=== PATIENT | female | born 1980 | race Caucasian/White ===

== ENCOUNTER → 2021-09-27 | Outpatient (CLI) | payer SELFPAY ==
--- NOTE | 2021-09-27 12:30 | BRBX_PTH ---
PATIENT: ALESSANDRO PALACIOS [id number] AGE/SX: 41/F ROOM: RE09/27/[address]: Dr. Rick Bartholomew MD : 1980 BED: DIS: 09/27/2021 SPEC #: [id number] RECD: 09/27/21 15:47 STATUS: STEPHANIE RERosibel #: [id number] COLE: 09/27/21 12:[address]: Rick Bartholomew DEPT: SURGICAL PATHOLOGY RECD BY: Karis Mcmanus ENTERED: 09/28/21 08:20 SP TYPE: BREAST BX OTHR DR: ERIN Pineda Tissues: Right breast, NOS Procedures: Surgery Specimen Level IV HEADER OPERATION: Right lateral biopsy PRE-OP DIAGNOSIS: Right breast mass/cyst TISSUE SUBMITTED: Right breast tissue MICROSCOPIC DIAGNOSIS Right breast, core biopsy: Fibrocystic changes. Negative for atypia or malignancy. SJ:[place] 09/29/2021 COMMENT Correlation with clinical, radiologic findings and appropriate follow up are necessary. MICROSCOPIC DESCRIPTION Slides are reviewed. GROSS DESCRIPTION Received in fixative is one container labeled with the patient's name and designated right breast. The specimen consists of multiple elongated fragments of peters-yellow fibroadipose tissue that in aggregate measure 1.5 x 0.5 x 0.1 cm. The entire specimen is submitted in one cassette. / SJ:rg 09/28/2021 TC:5 CPT: 03037
== END | disposition home or self-care (01) ==
LOC: LABSPEC 15:55
PROVIDERS: PCP Physician Assistant; Referring Provider Surgery; Visit Provider Surgery
DX: N60.11 Diffuse cystic mastopathy of right breast (principal)
CPT/HCPCS: 88305

== ENCOUNTER → 2022-03-24 | Outpatient (CLI) | payer SELFPAY ==
--- NOTE | 2022-03-24 09:18 | US_ITS ---
STUDY: ULTRASOUND BREAST - RIGHT REASON FOR EXAM: Female, 41 years old. 6 month follow-up. History of right breast cysts. TECHNIQUE: Axial and longitudinal images of the RIGHT breast were performed with a high resolution ultrasound transducer. # OF IMAGES: 26 COMPARISON: None. FINDINGS: The outer quadrant of the right breast was examined with ultrasound. Multiple small cysts are seen. The largest cyst measures 1.2 cm x 1 cm x 0.6 cm. This is at the 9 o''clock position of the breast at 2 cm from the nipple. US/Breast Limited Unilateral IMPRESSION: Multiple cysts are seen in the upper outer quadrant of the right breast. ASSESSMENT CATEGORY: BIRADS Category 2: Benign. A letter regarding these results will be sent to the patient by the facility within 30 days. Electronically Signed: Oswaldo Gregorio MD at 11:01 EST ,
== END | disposition home or self-care (01) ==
PROVIDERS: PCP Physician Assistant; Referring Provider Surgery; Visit Provider Surgery
DX: R92.8 Other abnormal and inconclusive findings on diagnostic imaging of breast (principal); N60.01 Solitary cyst of right breast
CPT/HCPCS: 76642

== ENCOUNTER → 2023-11-20 | Outpatient (CLI) | payer OTHER, SELFPAY ==
--- NOTE | 2023-11-20 | BRBX_PTH ---
PATIENT: ALESSANDR[facility]ACIOS [id number] AGE/SX: 43/F ROOM: RE11/20/[address]: Dr. 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 See synoptic report below. RANGEL/ 11/22/2023 COMMENT INVASIVE BREAST CANCER SUMMARY: Procedure: Needle core biopsy Specimen Laterality: Left breast Tumor site: 3o'clock, 7.0 cm from nipple Histologic type: Invasive ductal carcinoma Provisional Histologic grade: 2 Tubule Differentiation Score: 3 Nuclear Pleomorphism Score: 3 Mitotic Rate Score: 1 Tumor Size ( greatest dimension): 8.0mm Ductal Carcinoma In situ: Present Architectural Pattern: Solid and [place] Nuclear Grade: 2-3 Necrosis: Focally present Cancerization of lobules: Present. Angiolymphatic Invasion: Not identified Microcalcifications: Not present Additional Findings: Minimal chronic inflammation Breast Marker Study: [id number] ER: 85%, strong intensity UT: 85%, moderate to strong intensity Her2:1-2+ (equivocal) Ki67: 15% [id number]: Pending The above summary is in compliance with [employer] of [place] Path[employer] (CAP) Cancer Protocols Checklist and [place] Joint Committee on Cancer (AJCC), Staging Manual, 8th Ed. Immunohistochemistry ([id number]) supports the above diagnosis. Case has been reviewed in consultation with Dr. Boogie who concurs with the above diagnosis. IDC:SJ MICROSCOPIC DESCRIPTION Slides are reviewed. GROSS DESCRIPTION Received in fixative is one container labeled with the patient's name and designated Left breast lesion. The specimen consists of two cores of light peters soft tissue measuring in aggregate 1.5 x 0.5 x 0.1cm. The specimen is submitted in its entirety in one cassette. AM/mr 11/21/2023 TC:0 CPT:74011 ADDENDUM ADDENDUM ADDENDUM ADDENDUM ADDENDUM ADDENDUM ADDENDUM ADDENDUM ADDENDUM ADDENDUM ADDENDUM ADDENDUM 12/04/2023 11:11 ADDENDUM 12/04/2023 11:11 ADDENDUM 12/04/2023 11:11 ADDENDUM 12/04/2023 11:11 ADDENDUM 12/04/2023 11:11 Breast Cancer HER-2/west FISH Analysis ([employer]) Test Description Interpretation Her-2/west Negative/Not Amplified Results: HER2: CEP-17 ratio: 1.0:1 Average HER2 signal: 2.6 Average CEP-17 signal: 2.7 Number of selected invasive cells scanned: 50 Date: 12/04/2023 *See Complete [facility] Report in EMR For Further Details*
--- NOTE | 2023-11-20 | IMM_PTH ---
PATIENT: ALESSANDRO PALACIOS LOC: [facility] U#:[id number] AGE/SX: 43/F ROOM: RE11/20/[address]: Dr. Cora Rios MD : 1980 BED: DIS: 11/20/2023 SPEC #: [id number] RECD: 11/22/23 12:00 STATUS: STEPHANIE REQ #: [id number] COLE: 11/20/23 00:[address]: Cora Rios DEPT: IMMUNOHISTOCHEMISTRY RECD BY: Keo Walters ENTERED: 11/22/23 12:02 SP TYPE: IMMUNO OTHR DR: ERIN Pineda Tissues: Left breast, NOS Procedures: CK5-6 (initial) CALPONIN-1 (add) CD31 (add) CK8 (add) E-CAD (add) HER2 APRIL (add) KI-67 (add) P53 (add) TN (add) FACTOR VIII (add) P40 (add) MOC-31 (add) ER (initial) PHYSICIAN & [address] [address] SPECIMEN INFORMATION: Tissue Source: Left breast lesion Clinical Info: Left breast lesion, 3o'clock, 7.0cm from nipple Specimen Number: [id number] CPT code: 60041,90823s5,97347p2 METHODOLOGY: Deparaffinized sections of prefer/formalin-fixed tissue or PAP/DQ stained slides are incubated with monoclonal/polyclonal antibodies/oligonucleotide probes. Localization is made via biotin free immunoperoxidase method. Appropriate controls are performed and reacted as expected. Results on target cell population are indicated in the following table: RESULTS: ANTIBODY / CLONE RESULT P53 (DO-7) positive, indeterminate pattern Ki-67 (30-9) positive, 15% CK8 (71znydQ35) positive CK5-6 (D5 & 1684) negative Calponin-1 (WV026K) negative P40 (BC28) negative E-Cad (ECH-6) positive MOC-31 (4561) positive, dim CD31 (KATIANA/70A) Factor VIII (R Ag) MORPHOMETRIC ANALYSIS ER (clone 6F11) 85, strong intensity TN (clone 16/1E2) 85%, moderate to strong intensity Her-2Neu (clone CB11) 1-2+ The prognostic test for HER2 is performed on formalin-fixed paraffin embedded tissue. A 3+ (positive) staining pattern is defined as intense, homogeneous, complete, circumferential membranous staining in >10% of contiguous tumor cells. A similar weak (2+) staining pattern is interpreted as equivocal. JAYDE follow-up testing is recommended for all equivocal cases. Positivity/negativity for ER/TN is reported if > or < 1% of the tumor cells are immuno- reactive, respectively. The ASCO/CAP criteria is used for scoring. Reference: Journal of Clinical Oncology, 2013; 31:6268-2542 & 2010; 16:4776-5051. Ischemic time: Less than one hour. Duration of fixation: 32 Hrs; Sample Adequate: Yes. These assays have not been validated on decalcified tissues. Results should be interpreted with caution given the likelihood of false negativity on decalcified specimens or fixation greater than 72 hours. Alternative testing methods (FISH/dualISH for Her2; gene expression for ER) are recommended, if applicable. Please notify the laboratory if additional testing is required. These tests were developed and their performance characteristics determined by [facility]. They may not have been cleared or approved by the U.S. Food and Drug Administration. The FDA has determined that such clearance or approval is not necessary. The above immunohistochemical/dualISH markers are ordered and reviewed by the Pathologist. The test for HER 2 is performed on formalin-fixed paraffin embedded tissue using the CB11 mouse monoclonal antibody (CooCoo). A 3+ staining pattern is interpreted as positive and is defined as a strong membranous staining involving the entire cell membrane in over 30% of invasive tumor cells. A similar weak staining pattern (2+) involving 10% of the tumor cells is interpreted as equivocal. HER 2 follow-up testing by FISH is recommended for all equivocal results. Reference: [place] Society of Clinical Oncology and the College of [place] Path[employer] (J. Clin. Oncol. 23: 118-145, 2007). Fixative Used: Formalin; Duration of Fixation: 32 Hrs; Sample Adequate: Yes INTERPRETATION: Left breast lesion, 3o'clock, 7.0cm from nipple, biopsy: Invasive ductal carcinoma, provisional grade 2/3. Ductal carcinoma insitu. Positive for estrogen receptors (favorable prognostic indicator). Positive for progesterone receptors (favorable prognostic indicator). Equivocal for overexpression of RNQ1omm. Case has been reviewed in consultation with Dr. Boogie who concurs with the above diagnosis. IDC:HOWARD MULTANI/ 11/23/2023 ADDENDUM ADDENDUM ADDENDUM ADDENDUM ADDENDUM ADDENDUM ADDENDUM ADDENDUM ADDENDUM ADDENDUM ADDENDUM ADDENDUM ADDENDUM ADDENDUM ADDENDUM ADDENDUM ADDENDUM ADDENDUM ADDENDUM ADDENDUM ADDENDUM 11/29/2023 13:36 ADDENDUM 11/29/2023 13:36 ADDENDUM 11/29/2023 13:36 ADDENDUM 11/29/2023 13:36 ADDENDUM 11/29/2023 13:36 IN SITU HYBRIDIZATION (JAYDE) FOR HER2 Interpretation: Negative / Not Amplified HER2 : CEP-17 Ratio: 1.85 Average HER2 Signal: 2.15 Average CEP-17 Signal: 1.1 Number of Tumor Cells Scanned: 50 Interpretative Information: The INFORM HER2 Dual JAYDE DNA Probe Cocktail assay is performed on formalin-fixed paraffin embedded tissue and determines HER2 gene status by detecting HER2 copies via silver in situ hybridization (SISH) and Chromosome 17 copies via chromogenic red in situ hybridization on tumor cells. A minimum of 20 cells representing > 10% of contiguous and homogeneous invasive tumor cells were analyzed. HER2 gene status is classified as Non-amplified (HER2/Chr17 ratio < 2.0) or Amplified (HER2/Chr17 ratio greater than or equal to 2.0). If the resulting HER2/Chr17 ratio falls within 1.8 - 2.2 (Borderline), retesting by FISH is recommended. Reference: Jorge AC, Adrianne ANGELH, Angie DG, et al: Recommendations for Human Epidermal Growth Factor Receptor 2 Testing in Breast Cancer: [place] Society of Clinical Oncology / College of [place] Pathologists Clinical Practice Guideline Update. J Clin Oncol 31:2883-0647, 2013.
== END | disposition home or self-care (01) ==
LOC: LABSPEC 15:54
PROVIDERS: PCP Physician Assistant; Referring Provider Surgery; Visit Provider Surgery
DX: C50.412 Malignant neoplasm of upper-outer quadrant of left female breast (principal); Z17.0 Estrogen receptor positive status [ER+]
CPT/HCPCS: 81002; 88305; 88341; 88342

== ENCOUNTER → 2023-11-28 | Outpatient (CLI) | payer OTHER, SELFPAY ==
--- NOTE | 2023-11-28 13:07 | MRI_ITS ---
STUDY: BILATERAL BREAST MR WITHOUT AND WITH CONTRAST REASON FOR EXAM: Female, 43 years old. Left breast cancer. History of right cyst aspiration in 2021. Mother with breast cancer at age 70 and maternal aunt in 70s. Biopsy November 20, 2023. TECHNIQUE: Multi-sequence multi-echo imaging of both breasts was performed with a dedicated breast coil. T1-weighted and T2-weighted images were performed before the administration of contrast. T1-weighted images were also performed after the intravenous administration of 11 mL of Clariscan contrast. COMPARISON: Breast ultrasounds dated September 15, 2021 and March 24, 2022. Screening mammogram dated November 12, 2023 and left breast ultrasound dated November 14, 2023. FINDINGS: RIGHT BREAST: Heterogeneously dense fibroglandular tissue with moderate background enhancement. There are no abnormal enhancing masses or areas of non-mass enhancement in the right breast. LEFT BREAST: Heterogeneously dense fibroglandular tissue with moderate background enhancement. In the far posterior and outer aspect of the left breast near the chest wall, there is an enhancing irregular mass measuring 2.2 cm x 1.8 cm x 9 mm. This mass contacts the pectoralis major muscle and there are enhancing spicules that extend into the pectoralis muscle. This lesion represents the index node in carcinoma. A lobular enhancing mass at the nipple line 5.4 cm from the nipple at approximately the 6:00 position is present. This focal area of enhancement is nonspecific. More inferiorly and medially there are 2 foci of non--mass enhancement, one which is 4.8 cm from the nipple and approximately 1.6 cm below the nipple with the area of enhancement measuring approximately 13 mm x 9 mm and another more inferiorly and slightly more laterally 5 cm from the nipple and approximately 2.8 cm below the nipple. Both of these areas are nonspecific. Second look ultrasound of the inferior and medial aspect of the left breast is recommended for further evaluation of these MRI findings. No enlarged or abnormal lymph nodes. No abnormality in the visualized regions of the chest or liver. MRI/Breast Bilateral W/O and W IMPRESSION: Index lesion of the left breast measuring 2.2 cm x 1.8 cm x 9 mm adjacent to the pectoralis major muscle with an enhancing spicule that extends beyond the surface of the pectoralis muscle. 2 nonspecific enhancing lesions in the lower medial aspect of the left breast as described for which further evaluation with second look ultrasound is recommended. CATEGORY: BIRADS Category 6: Known Biopsy-Proven Malignancy - Appropriate Action Should Be Taken. A letter regarding these results will be sent to the patient by the facility within 30 days. Electronically Signed: Chace Salcedo MD at 13:03 EDT ,
== END | disposition home or self-care (01) ==
PROVIDERS: PCP Physician Assistant; Referring Provider Surgery; Visit Provider Surgery
DX: Z12.31 Encounter for screening mammogram for malignant neoplasm of breast (principal)
CPT/HCPCS: 77049; A9575; A4216; C8908

== ENCOUNTER → 2023-12-06 | Outpatient (CLI) | payer OTHER, SELFPAY ==
--- NOTE | 2023-12-06 10:41 | US_ITS ---
STUDY: ULTRASOUND BREAST - LEFT REASON FOR EXAM: Female, 43 years old. Abnormal MRI of the breast. TECHNIQUE: Axial and longitudinal images of the LEFT breast were performed with a high resolution ultrasound transducer. # OF IMAGES: 33 COMPARISON: Comparison is made with prior MRI of the breasts dated November 28, 2023. FINDINGS: LEFT Breast: The inferior medial aspect of the left breast was examined with ultrasound. There is an 8 mm x 8 mm x 5 mm hypoechoic well-defined nodule at the 9:00 position of the breast at 1 cm from the nipple. A similar-appearing well-defined hypoechoic nodule at the 7:00 position of the breast at 3 cm from nipple was seen as well. These most likely represent fibroadenomas. US/Breast Limited Unilateral IMPRESSION: The findings on the recent MRI correspond to 2, subcentimeter well-defined hypoechoic nodules. These most likely represent fibroadenomas. ASSESSMENT CATEGORY: BIRADS Category 2: Benign. A letter regarding these results will be sent to the patient by the facility within 30 days. Electronically Signed: Oswaldo Gregorio MD at 14:15 EDT ,
== END | disposition home or self-care (01) ==
LOC: OPUS 10:37
PROVIDERS: PCP Physician Assistant; Referring Provider Surgery; Visit Provider Surgery
DX: N63.20 Unspecified lump in the left breast, unspecified quadrant (principal); C50.412 Malignant neoplasm of upper-outer quadrant of left female breast; Z17.0 Estrogen receptor positive status [ER+]
CPT/HCPCS: 76642

== ENCOUNTER → 2023-12-18 | Outpatient (CLI) | payer OTHER, SELFPAY ==
--- NOTE | 2023-12-18 | IMM_PTH ---
PATIENT: ALESSANDRO PALACIOS LOC: [facility] U#:[id number] AGE/SX: 43/F ROOM: RE12/18/[address]: Dr. Cora Rios MD : 1980 BED: DIS: 12/18/2023 SPEC #: [id number] RECD: 12/19/23 12:05 STATUS: STEPHANIE REQ #: [id number] COLE: 12/18/23 00:[address]: Cora Rios DEPT: IMMUNOHISTOCHEMISTRY RECD BY: Keo Walters ENTERED: 12/19/23 12:06 SP TYPE: IMMUNO OTHR DR: No Primary Care Phys Tissues: A - Left breast, NOS Procedures: CALPONIN-1 (add) CK5-6 (add) CK8 (add) E-CAD (add) P53 (add) MI (add) P40 (add) ER (initial) KI-67 (initial) PHYSICIAN & INSTITUTION [address] [address] SPECIMEN INFORMATION: Tissue Source: A- Left breast nodule- 9o'clock, 1.0cm from nipple Clinical Info: Left breast lesion Specimen Number: [id number] CPT code: 01673,06736y0,45743q7 METHODOLOGY: Deparaffinized sections of prefer/formalin-fixed tissue or PAP/DQ stained slides are incubated with monoclonal/polyclonal antibodies/oligonucleotide probes. Localization is made via biotin free immunoperoxidase method. Appropriate controls are performed and reacted as expected. Results on target cell population are indicated in the following table: RESULTS: ANTIBODY / CLONE RESULT Block A P53 (DO-7) positive, wild type, dim Ki-67 (30-9) positive, 5% CK8 ([id number]) positive CK5-6 (D5 & 1684) positive, basal cells Calponin-1 (RB930O) positive P40 (BC28) positive, basal cells E-Cad (ECH-6) positive MORPHOMETRIC ANALYSIS ER (clone 6F11) >95%, strong MI (clone 16/1E2) >95, stromg Reference: Journal of Clinical Oncology, 2013; 31:5755-2980 & 2010; 16:2976-6584. Ischemic time: Less than one hour. Duration of fixation: 12 Hrs; Sample Adequate: Yes. These assays have not been validated on decalcified tissues. Results should be interpreted with caution given the likelihood of false negativity on decalcified specimens or fixation greater than 72 hours. Alternative testing methods (FISH/dualISH for Her2; gene expression for ER) are recommended, if applicable. Please notify the laboratory if additional testing is required. These tests were developed and their performance characteristics determined by [facility]. They may not have been cleared or approved by the U.S. Food and Drug Administration. The FDA has determined that such clearance or approval is not necessary. The above immunohistochemical/dualISH markers are ordered and reviewed by the Pathologist. INTERPRETATION: A. Left breast lesion, core biopsy: Atypical ductal hyperplasia. Positive for estrogen receptors (favorable prognostic indicator). Positive for progesterone receptors (favorable prognostic indicator). RANGEL/ 12/20/2023
--- NOTE | 2023-12-18 08:00 | BRBX_PTH ---
PATIENT: ALESSANDRO PALACIOS [facility] U[facility][id number] AGE/SX: 43/F ROOM: RE12/18/[address]: Dr. Cora Rios MD : 1980 BED: DIS: 12/18/2023 SPEC #: [id number] RECD: 12/18/23 08:56 STATUS: STEPHANIE RERosibel #: [id number] COLE: 12/18/23 08:[address]: Cora Rios DEPT: SURGICAL PATHOLOGY RECD BY: Karis Mcmanus ENTERED: 12/18/23 10:38 SP TYPE: BREAST BX OTHR DR: No Primary Care Phys Tissues: A - Left breast, NOS B - Left breast, NOS Procedures: Surgery Specimen Level IV HEADER OPERATION: Biopsy of left breast lesion x2 PRE-OP DIAGNOSIS: Left breast lesion TISSUE SUBMITTED: A- Left breast nodule- 9o'clock, 1cm from nipple, B- Left breast nodule- 7o'clock, 3cm from nipple Ischemic Time: 1 minute Fixation Time: 12 hours MICROSCOPIC DIAGNOSIS A. Left breast lesion, 9o'clock, core biopsy: Focal atypical ductal hyperplasia. Hyalinized stroma. See comment. B. Left breast lesion, 7o'clock, core biopsy: Non proliferative fibrocystic change. AM/mr 12/19/2023 COMMENT A. Immunohistochemistry ([id number]) supports the above diagnosis. Case has been reviewed in consultation with Dr. Mendoza who concurs with the above diagnosis. IDC:SJ MICROSCOPIC DESCRIPTION Slides are reviewed. GROSS DESCRIPTION A. Received in fixative is one container labeled with the patient's name and designated Left breast nodule 9o'clock. The specimen consists of multiple elongated fragments of peters-yellow fibroadipose tissue that in aggregate measure 1.5 x 0.5 x 0.1 cm. The specimen is totally submitted in one cassette. B. Received in fixative is one container labeled with the patient's name and designated Left breast 7o'clock. The specimen consists of multiple elongated fragments of peters-yellow fibroadipose tissue mixed with blood clot that in aggregate measure 2.5 x 1.0 x 0.1 cm. The specimen is totally submitted in one cassette. SJ.mr 12/18/2023 TC:0 CPT:38881o9
== END | disposition home or self-care (01) ==
LOC: LABSPEC 09:02
PROVIDERS: Referring Provider Surgery; Visit Provider Surgery
DX: N63.20 Unspecified lump in the left breast, unspecified quadrant (principal)
CPT/HCPCS: 88305; 88341; 88342

== ENCOUNTER → 2024-01-09 | Outpatient (CLI) | payer OTHER, SELFPAY ==
--- NOTE | 2024-01-09 13:42 | ECHODONC_ITS ---
Reason For Study: Pre Chemo/ Left Breast Cancer Procedure This was a 2D Doppler, Color Flow transthoracic echocardiogram. Myocardial strain analysis was performed in this exam to aid in the assessment of cardiac function. Exam performed in department. Left Ventricle Normal LV size. Left ventricular systolic function is normal. The left ventricular ejection fraction is 65 %. No regional wall motion abnormalities noted. Right Ventricle Normal RV size. Normal systolic function. Atria Normal left atrium. Normal right atrium. Mitral Valve Normal mitral valve. Tricuspid Valve Normal tricuspid valve. Aortic Valve Trisinus/trileaflet aortic valve. Pulmonic Valve Normal pulmonic valve. Great Vessels Normal aortic root. The pulmonary artery is normal size. Normal inferior vena cava. Pericardium/Pleural No pericardial effusion. MMode/2D Measurements & Calculations LVIDd: 3.7 cm IVSd: 0.67 cm LA dimension: 2.9 cm LVIDs: 2.8 cm LVPWd: 0.77 cm RVDd: 2.5 cm FS: 24.6 % LAV(MOD-bp): 22.8 ml LVAd ap4: 23.8 cm2 SV(MOD-sp4): 42.0 ml LAV(MOD-bp) Indexed: 14.4 ml/m2 LVLd ap4: 7.5 cm LAV(MOD-sp2): 28.0 ml EDV(MOD-sp4): 63.1 ml LAV(MOD-sp4): 18.1 ml EDV(sp4-el): 64.4 ml LVAs ap4: 12.4 cm2 LVLs ap4: 5.9 cm ESV(MOD-sp4): 21.1 ml ESV(sp4-el): 22.0 ml EF(MOD-sp4): 66.5 % EF(sp4-el): 65.9 % SV(sp4-el): 42.4 ml LA A4 area: 10.4 cm2 RA A4 area: 9.3 cm2 TAPSE: 1.7 cm Time Measurements MV dec time: 0.17 sec Doppler Measurements & Calculations MV E max andrew: 97.9 cm/sec Lat Peak E' Andrew: 19.7 cm/sec Med Peak E' Andrew: 14.9 cm/sec MV A max andrew: 50.4 cm/sec E/E' lat: 5.0 E/E' med: 6.6 MV E/A: 1.9 MV V2 max: 109.7 cm/sec MV P1/2t max andrew: 110.7 cm/sec Ao V2 max: 124.6 cm/sec MV max P.8 mmHg MV P1/2t: 62.9 msec Ao max P.2 mmHg MV V2 mean: 54.8 cm/sec MV dec slope: 515.5 cm/sec2 Ao V2 mean: 86.6 cm/sec MV mean P.5 mmHg Ao mean P.4 mmHg MV V2 VTI: 29.2 cm MVA(P1/2t): 3.5 cm2 Ao V2 VTI: 25.4 cm AV (velocity ratio): 0.88 LV V1 max: 105.5 cm/sec MR max andrew: 430.5 cm/sec PA V2 max: 79.0 cm/sec LV V1 max P.5 mmHg MR max P.1 mmHg PA max PG (full): 0.91 mmHg LV V1 mean P.6 mmHg LV V1 mean: 75.3 cm/sec LV V1 VTI: 22.4 cm ECHO/ONC Echo Complete Interpretation Summary Normal LV size. Left ventricular systolic function is normal. The left ventricular ejection fraction is 65 %. The global longitudinal strain is normal. The global longitudinal strain = -20 % (normal). Ordering Physician: Andrew Horvath Referring Physician: Andrew Horvath Performed By: Stephon Rebollar and Student
== END | disposition home or self-care (01) ==
PROVIDERS: PCP Physician Assistant; Referring Provider Internal Medicine Medical Oncology; Visit Provider Internal Medicine Medical Oncology
DX: Z01.818 Encounter for other preprocedural examination (principal); C50.412 Malignant neoplasm of upper-outer quadrant of left female breast
CPT/HCPCS: 93306; 93356

== ENCOUNTER → 2024-01-10 | Outpatient (CLI) | payer OTHER, SELFPAY ==
--- NOTE | 2024-01-10 10:41 | BD_ITS ---
STUDY: DUAL ENERGY X-RAY ABSORPTIOMETRY / DXA REASON FOR EXAM: Female, 43 years old. BREAST CA/SCREENING TECHNIQUE: Bone Mineral Density (BMD) measurements of lumbar spine and bilateral hips were obtained. COMPARISON: None. FINDINGS: Lumbar Spine (L1-L4): g/cm2 (0.843) / T-score (-1.9) / Z-score (-1.5) Findings are suggestive of osteopenia with a moderate fracture risk. Left Femur Total: g/cm2 (0.588) / T-score (-2.9) / Z-score (-2.6) Left Femoral Neck: g/cm2 (0.587) / T-score (-2.4) / Z-score (-2.0) Right Femur Total: g/cm2 (0.611) / T-score (-2.7) / Z-score (-2.5) Right Femoral Neck: g/cm2 (0.605) / T-score (-2.2) / Z-score (-1.8) BD/Dexa Bone Density Study IMPRESSION: The patient is considered osteoporotic as outlined below according to World [place] Organization (WHO) criteria with a high fracture risk. Reference Information: The T-score is the number of standard deviations above or below the standard which is normal for young adults at their peak bone mineral density. The World Health Organization (WHO) interprets the T-scores as follows: Above -1 Normal bone density Between -1 and -2.5 Osteopenia Equal to / or below -2.5 Osteoporosis As a practical clinical guideline, osteopenia may be graded as follows: Mild -1 through -1.5 Moderate -1.6 through -2.0 Severe -2.1 through -2.4 The Z-score is the number of standard deviations above or below age-matched controls. A Z-score of less than -1.5 would be considered abnormal. References: 1. NIH Osteoporosis and Related Bone Diseases www osteo.org 2. International Society for Clinical Densitometry www iscd.org 3. National Osteoporosis Foundation www nof.org Electronically Signed: Oswaldo Gregorio MD at 11:50 EDT ,
== END | disposition home or self-care (01) ==
LOC: OPBD 10:39
PROVIDERS: PCP Physician Assistant; Referring Provider Internal Medicine Medical Oncology; Visit Provider Internal Medicine Medical Oncology
DX: Z13.820 Encounter for screening for osteoporosis (principal); C50.412 Malignant neoplasm of upper-outer quadrant of left female breast; Z17.0 Estrogen receptor positive status [ER+]
CPT/HCPCS: 77080

== ENCOUNTER → 2024-01-21 | Outpatient (CLI) | payer OTHER, SELFPAY ==
[2024-01-29 10:10] LABS: HPV APTIMA, High Risk Negative (Negative)
== END | disposition home or self-care (01) ==
LOC: LABSPEC 12:13
PROVIDERS: PCP Physician Assistant; Referring Provider Obstetrics & Gynecology; Visit Provider Obstetrics & Gynecology
DX: Z12.4 Encounter for screening for malignant neoplasm of cervix (principal)
CPT/HCPCS: 87624; 88175; G0145

== ENCOUNTER 2024-01-24 15:57 | Observation (INO) | payer OTHER, SELFPAY ==
[2024-01-24] VITALS (9 sets, daily range): BP systolic 93–105; BP diastolic 58–77; PULSE 74–118; RESP 12–20; TEMP 36.1–36.6; O2SAT 94–100; BMI 18.5
--- NOTE | 2024-01-24 07:52 | NM_ITS ---
PROCEDURE: NUCLEAR MEDICINE Injection [place] Node - LEFT breast(s). REASON FOR EXAM: Female, 43 years old. Left breast cancer. TECHNIQUE: [place] node localization using radionuclide methods of the LEFT breast(s) was performed following intravenous administration of 1.2 mCi of of sulfur colloid Tc-99m. COMPARISON STUDIES : NM - None. CR - Not available for review at this time. CT - Not available for review at this time. MR - Not available for review at this time. US - Not available for review at this time. FINDINGS: 1.2 mCi of technetium labeled sulfur colloid was injected subcutaneously in 4 equal aliquots in the periareolar region of the left breast. NM/Lymph Node Injection Only IMPRESSION: 1.2 mCi of technetium sulfur colloid was injected subcutaneously in 4 equal aliquots in the periareolar region of the left breast for sentinel node imaging.. Electronically Signed: Oswaldo Gregorio MD at 11:09 EDT ,
[2024-01-24 08:15] LABS: Internal QC Validated? YES +Cl - CLEAR BKGD; Pregnancy, Urine Negative Negative; Record Kit Lot#,Urine Preg HCG0000772476
[2024-01-24] MEDS: Lactated Ringers 1,000 ML 15 ML IV (08:36)
--- NOTE | 2024-01-24 08:45 | PCM.PRE.AN2 ---
ASA Classification* ASA Classification ASA Classification: 2 Assessment & Plan Anesthesia* Anesthesia Assessment Anesthesia Assessment: Discussed sedation and/or anesthesia options, risks, benefits, and alternatives with patient/parents/legal guardian/POA. Questions invited. The patient/parents/legal guardian/POA seems to understand and agrees to proceed with anesthesia plan. Reviewed the physical assessment, medical history, allergy history and patient home medications list prior to surgery/procedure/anesthetic and documented any changes. Performed airway and anesthesia risk assessments. 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 When Was Last Pacemaker Check QUESTION #4 FULL TEXT: You/Your Family Experience fever (hyperthermia) with Anesthesia Last Oral Intake Last Oral intake: Last Oral Intake NPO since 04:00 01/24/24 08:15 Meds taken in AM with sips of No 01/24/24 08:15 water? Meds patient instructed to take am of surgery PONV PONV - loading machine operator helper: PONV - loading machine operator helper Female Yes 01/16/24 08:32 HX of Motion Sickness No 01/16/24 08:32 HX of N/V After Surgery No 01/16/24 08:32 Non-Smoker Yes 01/16/24 08:32 Duration of Surgery greater Yes 01/16/24 08:32 than 60 minutes Number of Risk Factors 3 01/16/24 08:32 PONV Score Moderate Risk 01/16/24 08:32 Height & Weight Height & Weight: Anesthesia: Height & Weight Height 5 ft 6 in 01/24/24 08:15 Weight: 52 kg 01/24/24 08:15 Body Mass Index (BMI) 18.5 01/24/24 08:15 Respiratory Assessment Respiratory Assessment - loading machine operator helper: Respiratory Tract Infection Hx - loading machine operator helper Hx Respiratory Tract Infection No 01/16/24 08:32 STOP Sleep Apnea STOP Sleep Apnea - loading machine operator helper: STOP Sleep Apnea - loading machine operator helper Hx Hypertension No 01/16/24 08:32 Hx Sleep Apnea No 01/16/24 08:32 CPAP BIPAP Do you snore loudly (louder No 01/16/24 08:32 than talking or can be heard Do you often feel tired/ No 01/16/24 08:32 fatigued/ sleepy during daytime? Has anyone observed you stop No 01/16/24 08:32 breathing during sleep? STOP Results Negative 01/16/24 08:32 QUESTION #5 FULL TEXT : Do you snore loudly (louder than talking or can be heard through closed doors)? 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 Specify any problems Hx of Preganancy in last 3 N/A 01/16/24 08:32 Months Nurse Filling Out Transfusion NBUCHER 01/16/24 08:32 & Questions: Date: 01/16/24 01/16/24 08:32 Time: 08:32 01/16/24 08:32 Patient unable to answer at this time (ie. confused, unrespo /Reproduction History /Reproductive History - loading machine operator helper: /Reproductive Hx- loading machine operator helper Hx Now No 01/16/24 08:32 Gestational Age (in weeks): EDC: Hx Hx Para Hx Section SAB No 01/21/24 10:04 Active Medications Active Medications: Current Medications Generic Name Dose Route Start Last Admin Trade Name Freq PRN Reason Stop Dose Admin Cefazolin Sodium 2 gm/ Sodium 110 mls @ 150 mls/hr 01/24/24 11:30 Chloride IV 01/24/24 12:13 PREOP ONE Lactated Ringer's 1,000 mls @ 15 mls/hr 01/24/24 08:45 01/24/24 08:36 IV 15 mls/hr .Q48H FANG Administration PFSH Medical History Osteoporosis Wears contact lenses Wears glasses Cancer Anemia Non-smoker History of echocardiogram History of anemia Breast cancer Home Medications ?Medication ?Instructions ?Recorded ?Last Taken ?Type NK 11/27/23 Unknown History Allergy/AdvReac Type Severity Reaction Status Date / Time adhesive tape Allergy Mild Rash Verified 01/24/24 08:13 Family History Mother Breast cancer mastectomy 2015 Diabetes Hypertension CAD (coronary artery disease) Father Cancer Diabetes Hypertension Aunt Breast cancer Surgical History History of breast biopsy (~12/2023) S/P tonsillectomy S/P section Social History adopted: No household members: spouse and children housing: house number of children: 4 current occupational status: employed current occupation: [employer] current occupational exposures/hazards: No pets and animals: Yes (2 dogs) leisure activities: sports, music, games and reading history of recent travel: Yes (Family vacation in [facility]) sexually active: No Smoking Status: Never smoker second hand exposure: No alcohol intake: never substance use type: does not use well-balanced diet: daily or most days caffeine: Yes (1 to 2 cups of black coffee a day) Type: coffee eating out: 1-3 times/week during the past year weight has: remained stable what type of physical activity do you participate in: walking, bicycling, swimming and yoga frequency: 1-2 times per week duration: 30-45 minutes/day tanner/cheondoism: Zoroastrian seatbelt use: always do you feel safe at home: Yes additional social history: - Abhishek Review of Systems (Anesthesia) ROS Narrative System reviewed and no additional complaints, except as documented.
--- NOTE | 2024-01-24 09:09 | PCM.HP.STD ---
HPI - General General Date of Service: 01/24/24 HPI Narrative ALESSANDRO PALACIOS, is a 43 F who presents for left mastectomy and sentinel lymph node biopsy, nuclear tracer, blue dye possible axillary lymph node dissection and prophylactic right mastectomy. Patient denies any other changes since previous office visit. Patient's to biopsies on the left did not show distinct fibroadenomas and 1 would require excisional biopsy of that area as well thus patient decided to just get a mastectomy. 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 Patient is interested in having a lumpectomy since her genetics were negative. Patient is aware that we do need to biopsy these 2 breast masses to prove they are fibroadenomas. Also question whether patient's original breast mass, which is proven breast cancer, is invading into the pec muscle or just adjacent. [facility] Medical History Osteoporosis Wears contact lenses Wears glasses Cancer Anemia Non-smoker History of echocardiogram History of anemia Breast cancer Home Medications ?Medication ?Instructions ?Recorded ?Last Taken ?Type NK 11/27/23 Unknown History Allergy/AdvReac Type Severity Reaction Status Date / Time adhesive tape Allergy Mild Rash Verified 01/24/24 08:13 Family History Mother Breast cancer mastectomy 2016 Diabetes Hypertension CAD (coronary artery disease) Father Cancer Diabetes Hypertension Aunt Breast cancer Surgical History History of breast biopsy (~12/2023) S/P tonsillectomy S/P section Social History adopted: No household members: spouse and children housing: house number of children: 4 current occupational status: employed 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 current occupational exposures/hazards: No pets and animals: Yes (2 dogs) leisure activities: sports, music, games and reading history of recent travel: Yes (Family vacation in October- [facility]) sexually active: No Smoking Status: Never smoker second hand exposure: No alcohol intake: never substance use type: does not use well-balanced diet: daily or most days caffeine: Yes (1 to 2 cups of black coffee a day) Type: coffee eating out: 1-3 times/week during the past year weight has: remained stable what type of physical activity do you participate in: walking, bicycling, swimming and yoga frequency: 1-2 times per week duration: 30-45 minutes/day tanner/episcopalian: Voodoo seatbelt use: always do you feel safe at home: Yes additional social history: - Abhishek Vital Signs Vital Signs Vital Signs: 01/24/24 08:15 01/24/24 08:15 01/24/24 08:45 Temperature 98 F 98 F Temperature Source Temporal Pulse Rate 74 74 Respiratory Rate 16 16 Respiratory Pattern Normal Blood Pressure 93/64 93/64 Blood Pressure Mean 73 Blood Pressure Source Monitor Blood Pressure Position Sitting Blood Pressure Location Left Arm Pulse Ox 100 100 Oxygen Delivery Method Room Air Weight Weight: 114 lb 10.246 oz Body Mass Index (BMI) 18.5 Physical Exam Const oriented x3 and no apparent distress Resp normal respiratory effort Cardio regular rate GI soft to palpation Extremity normal to inspection Results Lab / Micro Data Labs: Laboratory Results - last 24 hr 01/24/24 08:00: Urine Test Negative Assessment & Plan Assessment/Plan (1) Breast cancer: QUALIFIERS: Breast location: upper outer quadrant of breast Estrogen receptor status: positive Laterality: left Patient sex: female Qualified Code(s): C50.412 - Malignant neoplasm of upper-outer quadrant of left female breast; Z17.0 - Estrogen receptor positive status [ER+] PLAN: Plan I have given the patient options for initial surgical treatment. Options are the following: lumpectomy followed by radiation therapy vs. mastectomy vs. mastectomy followed by immediate reconstruction. I have described the procedures to the patient. I have described the advantages and disadvantages of the options, but I have told the patient that among the options, the survival rate for breast cancer is the same. I have told the patient that with all the surgeries that a sentinel lymph node biopsy is required. I have described the procedure of sentinel lymph node biopsy to the patient. I have told the patient that if the biopsy is positive for metastatic disease, then a full axillary lymph node dissection is required. I have told the patient that adjuvant chemotherapy will be required should the lymph nodes reveal metastatic disease. Also, a full lymph node dissection will increase the risk for lymphedema, especially if there are 4 or more lymph nodes positive for metastatic disease and radiation to the axilla is also required. I have told the patient the risks of surgery, including but not limited to: infection, bleeding, scar tissue, seroma and persistent seroma, lymph leak, injury to any blood vessels, injury to any nerves (particularly the long thoracic, the thoracodorsal, and the second intercostal brachial and the resultant sequelae), lymphedema, cosmetic deformity, dysesthesias, wound infections, further surgery (especially if margins are not clear), complications of anesthesia, etc. the patient understands. Patient has seen plastics and reviewed options prefer no reconstruction with only flat closure for a left mastectomy with sentinel lymph node biopsy and nuclear tracer and blue dye. And prophylactic right mastectomy. Cora Rios M.D. Pager: [phone] [facility] [address] [place] [address], [address] [place] [address] Office: [phone]
[2024-01-24] MEDS: Cefazolin 2 GM in 0.9% Normal Saline (100mL Bag) 100 ML IV (13:58)
[2024-01-24] MEDS: Methylene Blue 1% 100 MG/10 ML VIAL (14:41)
[2024-01-24] MEDS: 0.9% Normal Saline (Pres. free 10 ML Vial (14:41)
--- NOTE | 2024-01-24 14:45 | LYM_PTH ---
PATIENT: ALESSANDRO PALACIOS LOC: [facility] U#:[id number] AGE/SX: 43/F ROOM: IN322 RE01/24/[address]: Dr. Cora Rios MD : 1980 BED: 1 DIS: 01/26/2024 SPEC #: [id number] RECD: 01/24/24 15:15 STATUS: STEPHANIE SUNG #: [id number] COLE: 01/24/24 14:[address]: Cora Rios DEPT: SURGICAL PATHOLOGY RECD BY: Keo Walters ENTERED: 01/24/24 15:15 SP TYPE: LYM NODES OTHR DR: ERIN Pineda Tissues: A - Lymph node, NOS B - Right breast, NOS C - Left breast, NOS D - Left breast, NOS E - Left breast, NOS F - Left breast, NOS G - Left breast, NOS Procedures: Frozen Section (charge) Surgery Specimen Level IV Surgery Specimen Level V Surgery Specimen Level HEADER OPERATION: Left mastectomy sentinel lymph node biopsy, blue dye radiotracer PRE-OP DIAGNOSIS: Breast cancer TISSUE SUBMITTED: A- Left sentinel lymph node, B- Right breast tissue *short stitch- superior, long stitch- lateral*, C- Left breast tissue *long stitch-lateral, short stitch- superior*, D- New lateral inferior margin left *short stitch- superior, long stitch- lateral*, E- New superior medial skin margin left, *long stitch- medial, short stitch- superior*, F- New inferior medial margin left *short stitch- superior, long stitch- lateral, G- New medial superior margin left, short stitch- superior, long stitch- lateral* FROZEN SECTION DIAGNOSIS A. Left sentinel lymph node, biopsy: One lymph node, negative for metastatic carcinoma. 01/24/2024 MICROSCOPIC DIAGNOSIS A. Left sentinel lymph node, biopsy: One lymph node positive for micrometastatic carcinoma. See comment. B. Right breast, mastectomy: Focal fibrocystic changes and intraductal hyperplasia without atypia. Focal microcalcifications. Negative for malignancy. C. 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 One lymph node, negative for metastatic carcinoma. See cancer summary in the comment section. D. New lateral inferior margin, excision: Negative for carcinoma. E. New superior medial skin margin, excision: Negative for carcinoma. F. New inferior medial margin, excision: Negative for carcinoma. G. New medial superior margin, excision: Focal ductal carcinoma in situ. See comment. 01/30/2024 COMMENT A. The lymph node is positive for micrometastatic carcinoma measuring 0.9 mm in greatest dimension. Extranodal extension s not seen. Immunohistochemistry ([id number]) supports the above diagnosis. C. Focal ductal carcinoma in situ is noted away from invasive carcinoma (block 12). One lymph node is negative for metastatic carcinoma (block 6). Immunohistochemistry ([id number]) supports the above diagnosis. G. Ductal carcinoma in situ measures 0.1 in greatest dimension and 0.2cm away from the lateral margin of the specimen BREAST CANCER SUMMARY Procedure - Left mastectomy Tumor site - Upper outer quadrant 3o'clock, 7cm from nipple, as per clinical information. Tumor size - 1.8 x 1.5 x 1.5cm Histologic type - Invasion ductal carcinoma, not otherwise specified Histologic grade (Myra grade): Glandular/tubular differentiation score - 3 Nuclear pleomorphism score - 3 Mitotic count score - 1 Overall grade - grade 2 (score of 7) Tumor focality - Single focus of invasive carcinoma Ductal carcinoma in situ - Present Size (extent) of DCIS - DCIS comprises about 25% of the tumor involved. It is present adjacent to and away from the invasive carcinoma Extensive intraductal component: Present Number of blocks with DCIS - 6 Number of blocks examined - 30 (including specimens C, D, E, F, & G) Architectural pattern - Solid, cribriform Nuclear grade - grade 1,2,3 (low, intermediate and high) Necrosis - present, central (expansive comedo necrosis) Lobular carcinoma in situ - Not identified Tumor extension: Skin - Skin is present and free of tumor Nipple - Ductal carcinoma in situ- does not involve nipple epidermis Skeletal muscle - Present and free of tumor Margins: Margins are free of invasive carcinoma. The tumor is present at the inferior margin of the mastectomy specimen. However, new margins submitted separately specimens D & F are negative for carcinoma Ductal carcinoma in situ margin - 0.3cm away from the posterior margin in specimen C and 0.2cm away from the new lateral margin in specimen G (new medial superior margin) Regional lymph nodes: Number of lymph nodes (sentinel and nonsentinel lymph node) examined - 2 Number of sentinel lymph examined- 1 Number of lymph nodes with micrometastasis - 1 (focus of micrometastasis measures 0.9 mm in greatest dimension, measured microscopically) Extranodal extension - not seen. Number of lymph nodes with macrometastases, or isolated tumor cells - 0 Distal metastases- Not applicable Treatment effect - no known presurgical therapy. Lymphvascular invasion - Not identified Dermal lymphvascular invasion - Not identified Additional Pathologic Findings - Fibrocystic changes. Multifocal intraductal hyperplasia with atypia. Ancillary Studies: Previously performed on the tumor ([id number] / [id number]) ER: positive, (85%), strong intensity LA: positive, (85%) moderate to strong intensity Doq4zci: Equivocal (1-2+) [id number] by dual JAYDE: Negative / Not amplified Microcalcifications - Present in invasive carcinoma Please make reference to previous specimen [id number] left breast, 3o'clock, core biopsy with diagnosis of invasive ductal carcinoma and ductal carcinoma in situ and [id number] breast lesion at 9o'clock, core biopsy with diagnosis of focal atypical ductal hyperplasia and left lesion at 7o'clock, core biopsy with diagnosis of non-proliferative fibrocystic change. PATHOLOGIC STAGE: pT1c pN1mi pMx The above summary is in compliance with [employer] [place] [employer] (CAP) Cancer Protocols Checklist and [place] [employer] Committee on Cancer (AJCC), Staging Manual, 8th Ed. . MICROSCOPIC DESCRIPTION Slides are reviewed. GROSS DESCRIPTION A. Received fresh for frozen section diagnosis labeled with the patient's name is a specimen designated Left sentinel lymph node. The specimen consists of a piece of adipose tissue containing one nodule measuring 1.5 x 1.5 x 0.5cm. The specimen is bisected and submitted for frozen section diagnosis in one cassette. [facility] 01/24[facility] Sections are submitted after additional fixation. [facility] 01/28/2024 B. Received in fixative is one container labeled with the patient's name and designated Right breast. The specimen consists of a mastectomy specimen consistent with breast tissue with overlying skin ellipse. Breast tissue measures 16.0 x 14.0 x 5.0cm. Skin ellipse measures 16.0 x 5.0cm and nipple measures 1.5cm in greatest dimension. Skin areola show a few peters raised lesions measuring 0.2 to 0.3cm in greatest dimension. The specimen is inked as follows: posterior - black, superior - blue, inferior - green, medial - red and lateral - orange. Sections reveal yellow adipose cut surfaces mixed with peters-white fibrous areas. No obvious mass lesion is identified. More dictation will follow after fixation. [facility] 01/25/2024 Solar Sales Assessor sections are submitted in twelve cassettes as follows: 1&2- nipple, entirely submitted, 3-4- raised peters lesion in the areola, entirely submitted, 5- fibrous area underneath the nipple and areola, 6&7- medial portion of breast tissue, 8-10- central portion of breast tissue, 11&12- lateral portion of breast tissue. [facility] 01/28/2024 Sections are submitted after additional fixation. [facility] 01/28/2024 C. Received in fixative is one container labeled with the patient's name and designated Left breast tissue. The specimen consists of mastectomy specimen consistent with breast tissue with overlying skin ellipse. Breast tissue measures 18.0 x 13.0 x 5.0cm. Skin ellipse measures 16.0 x 5.5cm and nipple measures 1.8cm in greatest dimension. Two smaller nodules are noted in the areola measuring 0.3 and 0.5cm in greatest dimensions. The specimen is inked as follows: posterior - black, superior - blue, inferior - green, medial - red and lateral - orange. Surface of skin shows blue dye discoloration. More dictation will follow after fixation. [facility] 01/25/2024 Sections reveal a peters indurated mass in the lower outer quadrant measuring 1.8 x 1.5 x 1.5cm. This mass is 0.2 cm away from the closest inferior and posterior margins. Sections of the rest of the breast tissue reveal yellow adipose cut surfaces mixed with peters-white fibrous areas. Solar Sales Assessor sections are submitted in twelve cassettes as follows: 1&2- nipple, entirely submitted, 3- raised lesions in the areola (entirely submitted), 4- perpendicular medial, lateral, superior margin and skin, 5-8- tumor, entirely submitted with closest inferior and posterior margins, 9-12- sales representative health insurance sections from other areas. Sections are submitted after additional fixation.[facility] 01/28/2024 D. Received in fixative is one container labeled with the patient's name and designated New inferior margin- left. The specimen consists of a piece of fibroadipose tissue measuring 3.5 x 1.5 x 1.0cm. This specimen is oriented as follows: short superior, long lateral. This specimen is inked as follows: lateral marign- orange, medial margin- red, superior margin- blue, inferior margin- green. The specimen is serially sectioned and do not reveal any mass lesions. Entire specimen is submitted from lateral to medial margins in three cassettes. Sections are submitted after additional fixation./ 01/28/2024 E. Received in fixative is one container labeled with the patient's name and designated New superior medial skin- left. The specimen consists of a piece of skin with underlying tissue measuring 12.0 x 1.5cm and underlying breast tissue measuring 15.0 x 5.0 x 2.0cm. No skin lesion is identified. Specimen is inked as follows: superior margin- blue, inferior margin- green, medial margin- red, lateral margin- orange. Sections do not reveal any mass lesions. Solar Sales Assessor sections are submitted in three cassettes as follows: 1- medial and lateral margins, 2- more section. Sections are submitted after additional fixation.. 01/28/2024 F. Received in fixative is one container labeled with the patient's name and designated New inferior medial margin- left. The specimen consists of a piece of fibroadipose tissue measuring 5.0 x 4.0 x 2.0cm. The specimen is inked as follows: anterior - yellow, posterior - black, superior - blue, inferior - green, medial - red and lateral - orange. Sections do not reveal any mass lesions and reveal yellow adipose cut surfaces. Solar Sales Assessor sections are submitted in six cassettes. Cassette 1 contains the perpendicular medial, lateral, superior and inferior margins. Sections are submitted after additional fixation. 01/28/2024 G. Received in fixative is one container labeled with the patient's name and designated New medial superior margin- left. The specimen consists of a piece of fibroadipose tissue measuring 5.5 x 3.5 x 1.5cm. New superior margin is inked blue and old superior margin is inked black. Lateral margin is inked orange and medial margin is inked red. Sections do not reveal any mass lesions. Solar Sales Assessor sections are submitted in six cassettes. Cassette 1 contains the medial and lateral margins. Sections are submitted after additional fixation. 01/28/2024 TC:0 CPT:[id number] ADDENDUM ADDENDUM ADDENDUM ADDENDUM ADDENDUM ADDENDUM ADDENDUM ADDENDUM ADDENDUM ADDENDUM ADDENDUM ADDENDUM 02/26/2024 16:16 ADDENDUM 02/26/2024 16:16 ADDENDUM 02/26/2024 16:16 ADDENDUM 02/26/2024 16:16 ADDENDUM 02/26/2024 16:16 ONCOTYPE DX BREAST RECURRENCE SCORE REPORT PREMENOPAUSAL RECURRENCE SCORE RESULT : 21 DISTANT RECURRENCE RISK AT 5 YEARS: 9% GROUP AVERAGE ABSOLUTE CHEMOTHERAPY BENEFIT: 2.7%
--- NOTE | 2024-01-24 15:45 | OP.PCM_ITS ---
Problems Associated Problem List Diagnoses (1) Mass of breast, left: Report of Operation Date of Procedure: 01/24/24 Pre-Operative Diagnosis: Left breast cancer, prophylactic right mastectomy Post-Operative Diagnosis: Same Surgery/Procedure Performed:: Left mastectomy and sentinel lymph node biopsy, nuclear tracer, methylene blue Description of Surgical Findings:: 1 out of 1 node negative, prophylactic right mastectomy done by Dr. Monroe please see his operative report. Surgeon: Cora Rios hog sticker: Denisa Blanton Type of Anesthesia: General/Supplemental Anesthesiologist: Madhu Marshall Special Medications: Ancef 2 g IV x 1 Specimen's removed: 1. Right sentinel lymph node, 2. Right mastectomy, 3. New lateral inferior margin adjacent to tumor, 4. New medial superior skin margin, 5. New superior medial margin, 5. New inferior medial margin Drains: JPs x 2 Estimated Blood Loss (mL): 15 cc Description of Procedure: Synoptic Portion: Element Response Options Operation performed with curative intent. Yes Tracer(s) used to identify sentinel nodes in the upfront surgery (non- neoadjuvant) setting (select all that apply). Dye; Radioactive tracer Tracer(s) used to identify sentinel nodes in the neoadjuvant setting (select all that apply).Dye; Radioactive tracer All nodes (colored or non-colored) present at the end of a dye-filled lymphatic channel were removed. Yes All significantly radioactive nodes were removed. Yes All palpably suspicious nodes were removed. N/A Biopsy-proven positive nodes marked with clips prior to chemotherapy were identified and removed. N/A. (Please see Dr. Monroe's operative report for prophylactic right mastectomy?cases done simultaneously.) In AC the breast tissue was injected with TC-9 9 sulfur colloid. >90 minutes later the patient was taken to the operating room and general anesthesia was induced. 5 cc of methylene blue dye was injected in the 4 quadrants periareolar along with 10 cc of normal saline. This was massaged gently for 5 minutes. The left breast and axilla were prepped and draped in usual sterile fashion. A timeout was completed verifying correct patient, procedure, site, positioning, special equipment prior to beginning procedure. Handheld gamma probe was used to identify the location of the hottest spot in the axilla. Prior to the incision, the counts were 15. The incision was made and the blue and hot node was identified. The probe was placed in contact with the node in the 10 count was 658. The bed of the node measured 11 counts. No additional blue or hot nodes or palpable nodes were detected. Skin incision was made that encompassed the nipple areolar complex and the previous biopsy scar in past and generally oblique direction across the breast. Flaps are raised in the avascular plane between the flap and breast tissue from the clavicle superiorly, the sternum medially, the anterior rectus sheath inferiorly, and posterolateral border of the pectoralis major muscle laterally. SENIOR MANAGER MMCOE assisted with raising flaps. Hemostasis was achieved in the flaps. Next, the breast tissue and underlying pectoralis fascia were excised from the pec toralis major muscle, progressing from medial to laterally. At the lateral border of the pectoralis major muscle, the breast tissue was swung laterally and the lateral pedicle identified with the breast tissue gave way to the fat of the axilla. The lateral pedicle was incised and the specimen removed and oriented for pathology. The wound was irrigated and hemostasis was achieved. Closed suction drains were brought into the operating field through a separate stab incision and sutured to skin with 3-0 nylon suture. SENIOR MANAGER MMCOE did assist with closure. The incision was closed with interrupted 3-0 Vicryl to the simultaneously followed by a subcuticular layer of 4-0 Monocryl and Steri- Strips. The wound was dressed The patient tolerated procedure well and sent to postanesthesia care unit in s table condition. Complications none
--- NOTE | 2024-01-24 16:17 | PCM.OPRPT ---
Problems Associated Problem List Diagnoses (1) Breast cancer: Report of Operation Date of Procedure: 01/24/24 Pre-Operative Diagnosis: Left breast cancer, prophylactic right mastectomy Post-Operative Diagnosis: Same Surgery/Procedure Performed:: Prophylactic right mastectomy. A left mastectomy and sentinel lymph node biopsy was performed in conjunction with Dr. Rios (please see her operative note) Surgeon: Aroldo Monroe felling machine operator: FREDERICK SWIFTindustrial gas servicer supervisor Type of Anesthesia: General Specimen's removed: Right breast mastectomy tissue Drains: GABINO drain x 2 Estimated Blood Loss (mL): 30 mL Description of Procedure: The patient is a 43-year-old female who was recently diagnosed with left breast cancer. She was under the care of Dr. Rios. Patient desired left mastectomy with sentinel lymph node biopsy but also wished to undergo a prophylactic right-sided mastectomy as well. A discussion was held of this procedure including risks benefits and alternatives and she wished to proceed. I was asked to participate as well such that a simultaneous bilateral mastectomy could be performed to decrease amount of anesthesia time. Patient was brought to the operating room today following informed consent. She was placed supine on the operative table with arms outstretched arm boards. Once anesthesia was induced, the chest region was then prepped and draped in the usual sterile manner. The breast was marked bilaterally to indicate the planned incision lines. Once this was performed, a #15 blade was then used to create the skin incisions. This was essentially an ellipse incision that was performed bilaterally. Once the superior and inferior incisions were made on the right, skin rakes were used to elevate the skin and superior as well as inferior flaps were created. My JAMISON Page Makeup System Operator held the retractors to provide countertraction/retraction to develop these flaps. The flaps were extended superiorly to essentially the level of the clavicle, and medially to the sternum and inferiorly to the lower chest wall/upper abdomen and laterally to the axilla. Once these flaps were created the breast tissue was then excised off of the pectoralis muscle and a medial to lateral direction. Once the breast was removed, it was oriented such that a long stitch noguera the lateral aspect and a short stitch noguera the superior aspect. The specimen was then handed off the field labeled right breast mastectomy specimen. The wound was then copiously irrigated and electrocautery was utilized to ensure excellent hemostasis. Next 2 GABINO drains were placed. The more inferior drain was placed across the chest wall in a more superior drain was placed in the axilla. Next the wound was closed by the use of 2-0 Vicryl to reapproximate the subdermal layer. Finally 4-0 Monocryl was utilized to close the skin. Steri-Strips were applied as dressing. She was awakened anesthesia and taken the PACU in good condition. Complications None Admit VTE Documentation VTE Mechan Device Prophylaxis: SCD's Procedures Integumentary [id number]: [id number] Mast simple complete
--- NOTE | 2024-01-24 16:35 | PCM.POST.ANE ---
Anesthesia: Postop Eval I Current Vital Signs Temperature: 97 F Pulse Rate: 112 Blood Pressure: 102/77 Respiratory Rate: 16 Pulse Ox: 99 Oxygen Delivery Method: Room Air Assessment Airway patent: Yes Spontaneous unlabored respirations: Yes Mental status: Awake and Calm nausea: No Vomiting: No Anesthesia Complication: No Fluid Hydration Crystalloid volume administer (ml): 1,800 Total IV fluid infused: 1,800 Progress Note Anesthesia document: Postop Eval 1 completed: Yes
--- NOTE | 2024-01-24 17:03 | POSTOPAN2_ITS ---
Anesthesia Postop Eval I Sum Postop Eval Completion status Anesthesia document: Postop Eval 1 completed: Yes Anesthesia Postop Eval I Summary Anesthesia Postop Eval I Summary: Anesthesia Postop Eval I: Assessment Summary Airway patent Yes 01/24/24 16:35 TRUST VAULT CLERK.MDOT Spontaneous unlabored Yes 01/24/24 16:35 TRUST VAULT CLERK.MDOT respirations Mental status Awake,Calm 01/24/24 16:35 TRUST VAULT CLERK.MDOT nausea No 01/24/24 16:35 TRUST VAULT CLERK.MDOT Vomiting No 01/24/24 16:35 TRUST VAULT CLERK.MDOT Anesthesia Postop Eval I: Fluid Summary Crystalloid volume administer 1,800 01/24/24 16:35 TRUST VAULT CLERK.MDOT (ml) Colloids volume administered ( ml) Blood Product volume administered (ml) Total IV fluid infused 1,800 01/24/24 16:35 TRUST VAULT CLERK.MDOT Anesthesia Postop Eval I: Summary Notes Anesthesia Complication No 01/24/24 16:35 TRUST VAULT CLERK.MDOT Anesthesia Complication Comment: Post-operative progress note Anesthesia: Postop Eval II Evaluation Mental status: Awake Pain Level: 0 nausea: No Vomiting: No
--- NOTE | 2024-01-24 17:03 | PCM.POSTANE2 ---
Anesthesia Postop Eval I Sum Postop Eval Completion status Anesthesia document: Postop Eval 1 completed: Yes Anesthesia Postop Eval I Summary Anesthesia Postop Eval I Summary: Anesthesia Postop Eval I: Assessment Summary Airway patent Yes 01/24/24 16:35 POWER SAW [email or web address] Spontaneous unlabored Yes 01/24/24 16:35 POWER SAW [email or web address].MDOT respirations Mental status Awake,Calm 01/24/24 16:35 POWER SAW [email or web address].MDOT nausea No 01/24/24 16:35 POWER SAW MECHANIC.MDOT Vomiting No 01/24/24 16:35 POWER SAW [email or web address].MDOT Anesthesia Postop Eval I: Fluid Summary Crystalloid volume administer 1,800 01/24/24 16:35 POWER SAW MECHANIC.MDOT (ml) Colloids volume administered ( ml) Blood Product volume administered (ml) Total IV fluid infused 1,800 01/24/24 16:35 POWER SAW [email or web address].MDOT Anesthesia Postop Eval I: Summary Notes Anesthesia Complication No 01/24/24 16:35 POWER SAW [email or web address].MDOT Anesthesia Complication Comment: Post-operative progress note Anesthesia: Postop Eval II Evaluation Mental status: Awake Pain Level: 0 nausea: No Vomiting: No
[2024-01-24] MEDS: Ketorolac 15 MG/ML Vial IV (17:13)
--- NOTE | 2024-01-24 17:21 | SUR.PHASEI ---
THIS NURSE CALLED DR. SUN TO ASK HIM IF HE IS CONCERNED ABOUT HER HEART RATE AND HE SAID HE IS OK FOR HER TO GO UPSTAIRS WITH THIS RATE.
[2024-01-24] MEDS: Lactated Ringers 1,000 ML 100 ML IV (18:28)
[2024-01-24] MEDS: Ondansetron 4 MG/2 ML Vial IV (18:39)
--- NOTE | 2024-01-24 18:43 | NURSING ---
LR bag from surgery was empty- so new bag hung. there was not 800+ ml wasted as per computerized MAR indicates
[2024-01-24] MEDS: Acetaminophen 325 MG Tablet 650 MG PO (21:28)
[2024-01-24] MEDS: oxyCODONE 5 MG Tablet PO (22:33)
[2024-01-24] MEDS: proCHLORPERazine 10 MG/2 ML Vial IV (22:33)
[2024-01-25 03:15] VITALS: BP 91/50; PULSE 82; RESP 18; TEMP 36.6; O2SAT 97
[2024-01-25] MEDS: Lactated Ringers 1,000 ML 100 ML IV ×2 (03:18→13:52)
[2024-01-25] MEDS: oxyCODONE 5 MG Tablet PO ×4 (03:23→19:50)
[2024-01-25 07:17] LABS: Absolute Lymphocyte Count 1.21 X10^3/uL (0.83-4.51); Absolute Neutrophil Count 5.4 X10^3/uL (2.0-7.7); Basophil# 0.01 X10^3/uL; Basophil% 0.1 % (0-1); Eosinophil# 0.01 X10^3/uL; Eosinophils% 0.1 % (0-5); Hematocrit 27.4 % (37-47); Hemoglobin 9.2 g/dL (12.0-15.0); Lymphocyte # 1.21 X10^3/ul (0.83-4.51); Lymphocyte % 16.2 % (19-41); Mean Corp Hgb Conc 33.6 g/dL (32-36); Mean Corpuscular Hgb 32.1 pg (27.0-32.0); Mean Corpuscular Volume 95.5 fL (81-99); Mean Platelet Vol. 9.8 fl (6.2-12.0); Monocyte# 0.88 X10^3/uL; Monocyte% 11.7 % (0-10); NRBC Flagged by Analyzer 0 % (0-5); Neutrophil # 5.35 X10^3/uL (2.7-7.7); Neutrophil % 71.5 % (47-70); Platelet Count 158 K/mm3 (150-450); RBC Distribution Width CV 11.9 % (11.6-14.6); RBC Distribution Width SD 41.6 fl (35.1-43.9); Red Blood Count 2.87 M/mm3 (4.2-5.4); White Blood Count 7.5 K/mm3 (4.4-11.0)
--- NOTE | 2024-01-25 07:56 | PCM.PN.SRG ---
Subjective Subjective Patient's nausea has improved. JPs sanguinous more output on the left. Objective Data Objective Data Vital Signs: Vital Signs Temp Pulse Resp BP Pulse Ox O2 Del Method 98 F 82 18 91/50 L 97 Room Air 01/25/24 03:15 01/25/24 03:15 01/25/24 03:15 01/25/24 03:15 01/25/24 03:15 01/25/24 03:15 Oxygen Delivery Method Room Air Weight: 114 lb 10.246 oz Body Mass Index (BMI) 18.5 Intake & Output: Intake and Output for Last 24 Hours 01/23/24 01/24/24 01/25/24 23:59 23:59 23:59 Intake Total 1261.5 / 1261.5 883.33 / 883.33 Output Total Balance 1246.5 / 1246.5 868.33 / 868.33 Lab / Micro Data 01/25/24 06:52 Labs: Laboratory Results - last 24 hr 01/24/24 08:00: Urine Test Negative 01/25/24 06:52: WBC 7.5, RBC 2.87 L, Hgb 9.2 L, Hct 27.4 L, MCV 95.5, MCH 32.1 H, MCHC 33.6, RDW Std Deviation 41.6, RDW Coeff of Sima 11.9, Plt Count 158, MPV 9.8, Immature Gran % (Auto) 0.400, Neut % (Auto) 71.5 H, Lymph % (Auto) 16.2 L, [place] % (Auto) 11.7 H, Eos % (Auto) 0.1, Baso % (Auto) 0.1, Absolute Neuts (auto) 5.4, Absolute Lymphs (auto) 1.21, Nucleated RBC % 0 Radiography Diagnostic Testing: Radiology Impression [place] Node 01/24/24 07:52 IMPRESSION: 1.2 mCi of technetium sulfur colloid was injected subcutaneously in 4 equal aliquots in the periareolar region of the left breast for sentinel node imaging.. Electronically Signed: Oswaldo Gregorio MD at 11:09 EDT , Physical Exam Narrative Bilateral mastectomy incisions healing well clean dry and intact. All JPs are sanguinous, higher outputs on the left side. Const oriented x3 and no apparent distress Resp normal respiratory effort Cardio regular rate Assessment & Plan Assessment/Plan (1) S/P mastectomy, bilateral: PLAN: Plan Patient tolerating diet Continue pain control Continue monitor JPs and GABINO teaching?likely plan for discharge later today. Cora Rios M.D. Pager: [phone] [facility] [address] [place] [address], [address] [place] [address] Office: [phone]
[2024-01-25 08:11] VITALS: BP 84/57; PULSE 86; RESP 12; TEMP 36.6; O2SAT 100
--- NOTE | 2024-01-25 11:19 | CASEMGMT ---
RN CM into pt room, pt lying in bed in no distress. Pt reports feeling comfortable with GABINO care and denies any homegoing needs. Pt is I at home.
[2024-01-25] MEDS: Acetaminophen 325 MG Tablet 650 MG PO ×2 (11:45→19:50)
[2024-01-25] MEDS: Ondansetron 4 MG/2 ML Vial IV ×2 (11:46→19:50)
[2024-01-25] MEDS: proCHLORPERazine 10 MG/2 ML Vial IV (12:47)
[2024-01-25] MEDS: 0.9% Saline Lock 10 ML Syringe IV (12:49)
[2024-01-25 15:10] VITALS: BP 102/55; BP 103/72; BP 109/72; PULSE 101; PULSE 90; PULSE 95
[2024-01-25 19:49] VITALS: BP 103/67; PULSE 84; RESP 16; TEMP 36.7; O2SAT 97
[2024-01-26 02:45] VITALS: BP 101/73; PULSE 84; RESP 16; TEMP 36.8; O2SAT 98
[2024-01-26] MEDS: Acetaminophen 325 MG Tablet 650 MG PO ×2 (02:59→09:45)
--- NOTE | 2024-01-26 08:34 | PCM.PN.SRG ---
Subjective Subjective Patient reports she has a mild headache. She does not report any further nausea overnight. She did not eat anything yet either she only had crackers overnight. She denies nausea this morning. Objective Data Objective Data Vital Signs: Vital Signs Temp Pulse Resp BP Pulse Ox O2 Del Method 98.3 F 84 16 101/73 98 Room Air 01/26/24 02:45 01/26/24 02:45 01/26/24 02:45 01/26/24 02:45 01/26/24 02:45 01/26/24 02:45 Oxygen Delivery Method Room Air Weight: 114 lb 10.246 oz Body Mass Index (BMI) 18.5 Intake & Output: Intake and Output for Last 24 Hours 01/24/24 01/25/24 01/26/24 23:59 23:59 23:59 Intake Total 1261.5 / 1261.5 3219.00 / 3419.00 450 / 450 Output Total 105 / 105 27 / 27 Balance 1246.5 / 1246.5 3114.00 / 3314.00 423 / 423 Lab / Micro Data 01/25/24 06:52 Physical Exam Const oriented x3 and no apparent distress Resp normal respiratory effort Cardio regular rate and regular rhythm GI normal to inspection, nondistended, normoactive bowel sounds Assessment & Plan Assessment/Plan (1) S/P mastectomy, bilateral: PLAN: Patient had bilateral mastectomy and she is doing well except for the nausea she had last night. As long as she can tolerated diet this morning I will discharge her home. Rick Bartholomew MD Pager: [facility] [address] [place] [address], [address] [place] [address] Office:
--- NOTE | 2024-01-26 08:35 | PCM.DC.SUM ---
Providers Date of Admission: 01/24/24 Primary Care Physician: ERIN Pineda Reason For Visit: Left Mastectomy SLN bx,blue dye & r Diagnosis Discharge Diagnosis (1) S/P mastectomy, bilateral: Status: Acute Code(s): Z90.13 - Acquired absence of bilateral breasts and nipples Plan: Patient had bilateral mastectomy and she is doing well except for the nausea she had last night. As long as she can tolerated diet this morning I will discharge her home. Rick Bartholomew MD Pager: [facility] [address] [place] [address] [facility], [address] [place] [address] Office: Medications at Discharge Home Medications oxycodone 5 mg tablet 5 - 10 mg (1 - 2 x 5 mg) PO Q4H PRN PRN Pain Score 1-10 5 days #20 tabs 01/26/24 Hospital Course Summary of Care Provided Hospital Course: Patient had bilateral mastectomy. The following day she was doing well but in the afternoon she developed some nausea so her discharge was held. Currently she is not having any nausea as long as she tolerates a diet she will be discharged home. Weight / BMI Weight Weight: 114 lb 10.246 oz Body Mass Index (BMI) 18.5 ABG / Lab / Microbiology Data 01/25/24 06:52 D/C Instructions Discharge Diet: Light diet - advance as tolerated Discharge Activity: May Not Drive (for 2-3 days or while on narcotics.) and May Shower (may sponge bathe with drains in place) Lifting Restrictions: 10 lbs for 2 weeks Call your doctor if your incision/area has: Continuous Slow Oozing, Sudden Increased Bleeding, Increased Pain/ Swelling, Increased Redness, Foul Smelling Discharge and Swelling at the incision site Call your doctor if you observe: Fever of 101 or Higher Cleanse incision/area with: Soap & Water Drain: Suction (record daily output) Please Follow Up With: Cora Rios MD When: Please call to schedule 1 week follow up appointment. [phone] Meaningful Use Info Meaningful Use Meaningful Use Diagnoses (Choose all that apply): None applicable Ischemic Stroke Statin Dosing Therapy Reference: STATIN DOSE THERAPY REFERENCE: * Patients > 75 years receive moderate or high dose statin therapy. * Patients 75 years or YOUNGER should receive HIGH intensity statin dose unless contraindicated. You will be required to document reason for non-treatment if statin daily dose does not meet guidelines. HIGH DOSE STATIN THERAPY DAILY Atorvastatin > than or = to 40 mg Rosuvastatin > than or = to 20 mg Amlodipine + Atorvastatin > than or = to 2.5/40 mg Ezetimibe + Simvastatin 10/80 mg Simvastatin 80mg Discharge Plan Admission Admit Date/Time: 01/24/24 15:57 Attending Provider: Cora Rios Primary Care Provider: Princess Valdivia Discharge Orders/Prescriptions Prescriptions: New oxycodone 5 mg Tablet 5 - 10 mg PO Q4H PRN PRN (Reason: Pain Score 1-10) 5 Days Qty: 20 0RF Referrals / Follow Up: Princess Valdivia PA [Primary Care Provider] - Disposition Disposition (needs filled in before D/C Order can be placed): Home, Self Care
[2024-01-26 09:48] VITALS: BP 100/70; PULSE 90; RESP 16; TEMP 36.7; O2SAT 97
--- NOTE | 2024-01-28 | IMM_PTH ---
PATIENT: ALESSANDRO PALACIOS LOC: [facility] U#:[id number] AGE/SX: 43/F ROOM: ME322 RE01/24/[address]: Dr. Cora Rios MD : 1980 BED: 1 DIS: 01/26/2024 SPEC #: [id number] RECD: 01/30/24 13:28 STATUS: STEPHANIE REQ #: [id number] COLE: 01/28/24 00:[address]: Cora Rios DEPT: IMMUNOHISTOCHEMISTRY RECD BY: Keo Walters ENTERED: 01/30/24 13:29 SP TYPE: IMMUNO OTHR DR: ERIN Pineda Tissues: C - Left breast, NOS A - Axillary lymph node, NOS Procedures: E-CAD (initial) CALPONIN-1 (add) CK7 (add) CK8 (add) Pankeratin (initial) Pankeratin (add) P40 (add) CK7 (initial) PHYSICIAN & [address] [address] SPECIMEN INFORMATION: Tissue Source: C- Left breast Clinical Info: Breast cancer Specimen Number: [id number] CPT code: [id number],6 METHODOLOGY: Deparaffinized sections of prefer/formalin-fixed tissue or PAP/DQ stained slides are incubated with monoclonal/polyclonal antibodies/oligonucleotide probes. Localization is made via biotin free immunoperoxidase method. Appropriate controls are performed and reacted as expected. Results on target cell population are indicated in the following table: RESULTS: ANTIBODY / CLONE RESULT Block A 1 AE1-3 (AE1/AE3/PCK26) positive, micrometastasis CK7 (OV-TL12/30) positive, micrometastasis Block C 6 AE1-3 (AE1/AE3/PCK26) negative * CK7 (OV-TL12/30) negative * * Positive in carcinoma Block C 12 E-Cad (ECH-6) positive CK8 ([id number]) positive Calponin-1 (EK761B) positive (myoepithelial cells) P40 (BC28) positive (myoepithelial cells) These tests were developed and their performance characteristics determined by [facility]. They may not have been cleared or approved by the U.S. Food and Drug Administration. The FDA has determined that such clearance or approval is not necessary. The above immunohistochemical/dualISH markers are ordered and reviewed by the Pathologist. INTERPRETATION: A. Left sentinel lymph node, biopsy: One lymph node, positive for micrometastatic carcinoma. C. Left breast tissue, mastectomy: One lymph node, negative for metastatic carcinoma (C6). 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 Case has been reviewed in consultation with Dr. Mendoza who concurs with the above diagnosis. IDC:RANGEL POLANCOmr 01/31/2024
== END 2024-01-26 11:00 | disposition home or self-care (01) ==
LOC: MS3 17:27 → SDC 17:28 → MS3 17:28
PROVIDERS: Anesthesiology; Admitting Provider Surgery; PCP Physician Assistant; Referring Provider Surgery; Visit Provider Surgery
PROC: (CPT 19307; principal; 2024-01-24 11:15)
DX: C50.412 Malignant neoplasm of upper-outer quadrant of left female breast (principal); C77.3 Secondary and unspecified malignant neoplasm of axilla and upper limb lymph nodes; C50.912 Malignant neoplasm of unspecified site of left female breast; Z80.3 Family history of malignant neoplasm of breast; Z17.0 Estrogen receptor positive status [ER+]; N60.91 Unspecified benign mammary dysplasia of right breast; Z40.01 Encounter for prophylactic removal of breast
CPT/HCPCS: 19303 ×2; 38525; 38900; 00400; 38792; 81025; 85025; 88305; 88307; 88309; 88331; 88341; 88342; 94668; 96361; 96374; 96375; 96376; 99221; A4648; A9541; J7120; A4216; G0378; J2405; J3490

== ENCOUNTER → 2024-02-07 | Outpatient (CLI) | payer OTHER, SELFPAY ==
--- NOTE | 2024-02-07 13:47 | US_ITS ---
STUDY: ULTRASOUND OF THE FEMALE PELVIS - COMPLETE REASON FOR EXAM: Female, 43 years old. menorrhagia LMP: TECHNIQUE: Transabdominal and transvaginal TECHNICAL QUALITY: Adequate. COMPARISON: None. FINDINGS: The uterus is anteverted and is in a midline position. The uterus measures 8.6 x 5.8 x 4.2 cm. Normal uterine cervix. The endometrium measures 20.6 mm in thickness, and is heterogeneous. There is no demonstrated endometrial mass. There is intraluminal fluid likely hemorrhage. There is no demonstrated myometrial mass. I.U.D. - The patient does not have an I.U.D. The right ovary is visualized. The right ovary measures 5.4 x 5.1 x 4.6 cm. There is a cyst measuring 4.3 x 4.1 x 3.8 cm. There is no visualized right adnexal mass or complex lesion. There is normal arterial and normal venous vascularity. The left ovary is visualized. The left ovary measures 3.2 x 3.3 x 2 cm cm. There is a cyst measuring 1.7 x 1.6 x 1.1 cm. There is no visualized left adnexal mass or complex lesion. There is normal arterial and normal venous vascularity. There is mild fluid in the cul-de-sac. The pre void volume of the bladder was 635 ml. US/Pelvic w/ Transvaginal IMPRESSION: Diffusely thickened endometrial lining which appears heterogeneous with intraluminal fluid of uncertain significance. If patient is postmenopausal possibility of endometrial neoplasia or hyperplasia should be considered.. Bilateral ovarian cysts and mild fluid in the cul-de-sac. Electronically Signed: Marques Glaser MD at 17:59 EDT ,
== END | disposition home or self-care (01) ==
PROVIDERS: PCP Physician Assistant; Referring Provider Obstetrics & Gynecology; Visit Provider Obstetrics & Gynecology
DX: N92.0 Excessive and frequent menstruation with regular cycle (principal); N60.92 Unspecified benign mammary dysplasia of left breast
CPT/HCPCS: 76830; 76856

== ENCOUNTER → 2024-03-05 | Outpatient (CLI) | payer OTHER, SELFPAY ==
--- NOTE | 2024-03-05 | EMB_PTH ---
PATIENT: ALESSANDRO PALACIOS LOC: [facility]#:[id number] AGE/SX: 43/F ROOM: RE03/05/[address]: ALEXI Jennings : 1980 BED: DIS: 03/05/2024 SPEC #: [id number] RECD: 03/05/24 13:15 STATUS: STEPHANIE SUNG #: [id number] COLE: 03/05/24 00:[address]: Shannan Obrien NP DEPT: SURGICAL PATHOLOGY RECD BY: Karis Mcmanus ENTERED: 03/05/24 13:15 SP TYPE: ENDOM BX/C DARIANA DR: ERIN Pineda Tissues: Endometrium, NOS Procedures: Surgery Specimen Level IV HEADER OPERATION: Endometrial PRE-OP DIAGNOSIS: Endometrial thickening TISSUE SUBMITTED: Endometrial lining MICROSCOPIC DIAGNOSIS Endometrial biopsy: Scant fragments of benign ectocervical and endocervical epithelium and mucous. See yoon. 03/06/2024 COMMENT Endometrial tissue is not identified in the specimen. The specimen predominantly consists of mucoid tissue. Clinical correlation and appropriate follow up are necessary. MICROSCOPIC DESCRIPTION Slides are reviewed. GROSS DESCRIPTION Received in fixative is one container labeled with the patient's name and designated Endometrial biopsy. The specimen consists of multiple irregular fragments of peters mucoid tissue that in aggregate measure 2.5 x 2.5 x 0.1 cm. The specimen is totally submitted in one cassette. 03/05/2024 TC: Can not code CPT:06107
[2024-03-14 14:38] LABS: HPV Reflexed? NOT INDICATED
== END | disposition home or self-care (01) ==
LOC: LABSPEC 11:30
PROVIDERS: PCP Physician Assistant; Referring Provider Nurse Practitioner Women's Health; Visit Provider Nurse Practitioner Women's Health
DX: Z12.4 Encounter for screening for malignant neoplasm of cervix (principal); R93.89 Abnormal findings on diagnostic imaging of other specified body structures
CPT/HCPCS: 88175; 88305; G0145

== ENCOUNTER 2024-05-06 05:19 | Day surgery (SDC) | payer OTHER, SELFPAY ==
--- NOTE | 2024-04-24 16:53 | PAT.ANESEVAL ---
Pre-Assessment Diagnosis/Proposed Procedure Planned Operative Procedure(s): TOTAL ROBOTIC HYSTERECTOMY BSO CYSTO Anesthesia History Anesthesia History - student outreach coordinator: Anesthesia History - student outreach coordinator Hx Hospitalization No 04/24/24 10:25 Any Problems With Anesthesia Yes: N,V WITH MASTECTOMY 04/24/24 10:25 24 Cholinesterase deficiency No 04/24/24 10:25 You/Your Family Experience No 04/24/24 10:25 fever (hyperthermia) with Relationship Recent Exposure to Contagious No 01/24/24 08:15 Disease Does patient have nerve No 04/24/24 10:25 stimulator Patient instructed to have device shut off --Does patient have Pacemaker or ICD? When Was Last Pacemaker Check QUESTION #4 FULL TEXT: You/Your Family Experience fever (hyperthermia) with Anesthesia Last Oral Intake Last Oral intake: Last Oral Intake NPO since Meds taken in AM with sips of water? Meds patient instructed to take am of surgery PONV PONV - student outreach coordinator: PONV - student outreach coordinator Female Yes 04/24/24 10:25 HX of Motion Sickness No 04/24/24 10:25 HX of N/V After Surgery No 04/24/24 10:25 Non-Smoker Yes 04/24/24 10:25 Duration of Surgery greater Yes 04/24/24 10:25 than 60 minutes Number of Risk Factors 3 04/24/24 10:25 PONV Score Moderate Risk 04/24/24 10:25 Height & Weight Height & Weight: Anesthesia: Height & Weight Height 5 ft 6 in 03/05/24 10:56 Respiratory Assessment Respiratory Assessment - student outreach coordinator: Respiratory Tract Infection Hx - student outreach coordinator Hx Respiratory Tract Infection No 04/24/24 10:25 STOP Sleep Apnea STOP Sleep Apnea - student outreach coordinator: STOP Sleep Apnea - student outreach coordinator Hx Hypertension No 04/24/24 10:25 Hx Sleep Apnea No 04/24/24 10:25 CPAP No 04/24/24 10:25 BIPAP Do you snore loudly (louder No 04/24/24 10:25 than talking or can be heard Do you often feel tired/ No 04/24/24 10:25 fatigued/ sleepy during daytime? Has anyone observed you stop No 04/24/24 10:25 breathing during sleep? STOP Results Negative 04/24/24 10:25 QUESTION #5 FULL TEXT : Do you snore loudly (louder than talking or can be heard through closed doors)? 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 Specify any problems Hx of Preganancy in last 3 No 04/24/24 10:25 Months Nurse Filling Out Transfusion DSCHRIBER 04/24/24 10:25 & Questions: Date: 04/24/24 04/24/24 10:25 Time: 10:26 04/24/24 10:25 Patient unable to answer at this time (ie. confused, unrespo /Reproduction History /Reproductive History - student outreach coordinator: /Reproductive Hx- student outreach coordinator Hx Now No 04/24/24 10:25 Gestational Age (in weeks): EDC: Hx Hx Para Hx Section SAB No 04/24/24 10:25 PFSH Medical History (Updated 04/24/24 @ 10:29 by Clover Loya) Breast cancer, left Osteoporosis Wears contact lenses Wears glasses Cancer Anemia Non-smoker History of echocardiogram History of anemia Breast cancer Home Medications ?Medication ?Instructions ?Recorded ?Last Taken ?Type acetaminophen 325 mg tablet 325 mg PO Q6H PRN pain 04/24/24 Unknown History (Tylenol) Allergy/AdvReac Type Severity Reaction Status Date / Time adhesive tape Allergy Mild Rash Verified 04/24/24 10:23 Family History Mother Breast cancer mastectomy 2015 Diabetes Hypertension CAD (coronary artery disease) Father Cancer Diabetes Hypertension Aunt Breast cancer Surgical History (Updated 03/05/24 @ 11:25 by Shannan Obrien TELEGRAPH REPEATER INSTALLER, TELEGRAPH REPEATER INSTALLER-C) S/P mastectomy, bilateral History of breast biopsy (~12/2023) S/P tonsillectomy S/P section Social History adopted: No household members: spouse and children housing: house number of children: 4 current occupational status: employed 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 current occupational exposures/hazards: No pets and animals: Yes (2 dogs) leisure activities: sports, music, games and reading history of recent travel: Yes (Family vacation in [facility]) sexually active: No Smoking Status: Never smoker second hand exposure: No alcohol intake: never substance use type: does not use well-balanced diet: daily or most days caffeine: Yes (1 to 2 cups of black coffee a day) Type: coffee eating out: 1-3 times/week during the past year weight has: remained stable what type of physical activity do you participate in: walking, bicycling, swimming and yoga frequency: 1-2 times per week duration: 30-45 minutes/day tanner/hinduism: Faith seatbelt use: always do you feel safe at home: Yes additional social history: - Abhishek Audit: Pertinent Findings Pertinent Findings Echo (EF%) pertinent findings: January 09, 2024. Ejection fraction 65%. Normal valves. Recommendation Anesthesia Recommendation Anesthesia recommendation: OPTIMIZED for anesthesia
--- NOTE | 2024-04-28 12:01 | EKG12_ITS ---
Test Reason : PRE OP Blood Pressure : */* mmHG Vent. Rate : 69 BPM Atrial Rate : 69 BPM P-R Int : 102 ms QRS Dur : 84 ms QT Int : 388 ms P-R-T Axes : 54 77 73 degrees QTcB Int : 415 ms Sinus rhythm with short FL Otherwise normal ECG Confirmed by Mello Ruiz ([id number]), avid editor GRADY SCHAFER ([id number]) on 04/28/2024 1:05:04 PM Referred By: Adriana Catherine Confirmed By: Mello Ruiz
[2024-04-28 12:42] LABS: Hematocrit 36.8 % (37-47); Hemoglobin 12.6 g/dL (12.0-15.0); Mean Corp Hgb Conc 34.2 g/dL (32-36); Mean Corpuscular Hgb 32.2 pg (27.0-32.0); Mean Corpuscular Volume 94.1 fL (81-99); Mean Platelet Vol. 9.7 fl (6.2-12.0); Platelet Count 211 K/mm3 (150-450); RBC Distribution Width CV 12.2 % (11.6-14.6); Red Blood Count 3.91 M/mm3 (4.2-5.4); White Blood Count 6.4 K/mm3 (4.4-11.0)
[2024-04-28 13:04] LABS: Magnesium 2.4 mg/dL (1.6-2.6)
[2024-05-06] VITALS (13 sets, daily range): BP systolic 97–113; BP diastolic 64–86; PULSE 68–100; RESP 14–20; TEMP 35.9–36.6; O2SAT 100; BMI 19.5
[2024-05-06 05:57] LABS: Internal QC Validated? YES +Cl - CLEAR BKGD; Pregnancy, Urine Negative Negative
[2024-05-06] MEDS: Gabapentin 600 MG Tablet PO (06:23)
[2024-05-06] MEDS: Celecoxib 200 MG Capsule 400 MG PO (06:23)
[2024-05-06] MEDS: Phenazopyridine 95 MG Tablet 190 MG PO (06:23)
[2024-05-06] MEDS: Acetaminophen 500 MG Tablet 1000 MG PO (06:23)
[2024-05-06] MEDS: Magnesium 1 GM over 15 mins IV (06:24)
[2024-05-06] MEDS: Lactated Ringers 1,000 ML 40 ML IV (06:24)
--- NOTE | 2024-05-06 06:53 | HP.PCM_ITS ---
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 Required: No Is patient in pain?: No Allergies adhesive tape Allergy (Mild, Verified 04/28/24 14:28) Rash Medications ?Medication ?Instructions ?Recorded ?Confirmed ?Type NK 04/28/24 04/28/24 History Post menopausal: No Patient : No : No PFSH Medical History Breast cancer, left Osteoporosis Wears contact lenses Wears glasses Cancer Anemia Non-smoker History of echocardiogram History of anemia Breast cancer Surgical History S/P mastectomy, bilateral History of breast biopsy (~12/2023) S/P tonsillectomy S/P section Family History Mother Breast cancer mastectomy 2015 Diabetes Hypertension CAD (coronary artery disease)Father Cancer Diabetes HypertensionAunt Breast cancer Social History adopted: No household members: spouse and children housing: house number of children: 4 current occupational status: employed 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 current occupational exposures/hazards: No pets and animals: Yes (2 dogs) leisure activities: sports, music, games and reading history of recent travel: Yes (Family vacation in [place] [facility]) sexually active: No Smoking Status: Never smoker second hand exposure: No alcohol intake: never substance use type: does not use well-balanced diet: daily or most days caffeine: Yes (1 to 2 cups of black coffee a day) Type: coffee eating out: 1-3 times/week during the past year weight has: remained stable what type of physical activity do you participate in: walking, bicycling, swimming and yoga frequency: 1-2 times per week duration: 30-45 minutes/day tanner/confucianist: Sabianist seatbelt use: always do you feel safe at home: Yes additional social history: - Abhishek [facility] TRHBSO Cysto Details: ALESSANDRO PALACIOS is a 44 year old (all prior sections) who presents for discussion about prophylactic oophorectomy due to recent diagnosis of breast cancer. She had a double masectomy with Dr. Rios and then follow up with Dr. Horvath. The pathology showed Left breast lesion, core biopsy: Atypical ductal hyperplasia. Positive for estrogen receptors (favorable prognostic indicator). Positive for progesterone receptors (favorable prognostic indicator). Patient states that she also has a h/o ascus pap in 2021. per records a refex HPV was not performed or is not present on records. She did not undergo a colposcopy. . She also states that her periods have been becoming heavier lately and she would not mind a hysterectomy to take care of all of it. EMB only showed ecto and endocervix but patient is unable to tolerate a repeat biopsy. ultrasound showed the following: FINDINGS: The uterus is anteverted and is in a midline position. The uterus measures 8.6 x 5.8 x 4.2 cm. Normal uterine cervix. The endometrium measures 20.6 mm in thickness, and is heterogeneous. There is no demonstrated endometrial mass. There is intraluminal fluid likely hemorrhage. There is no demonstrated myometrial mass. I.U.D. - The patient does not have an I.U.D. The right ovary is visualized. The right ovary measures 5.4 x 5.1 x 4.6 cm. There is a cyst measuring 4.3 x 4.1 x 3.8 cm. There is no visualized right adnexal mass or complex lesion. There is normal arterial and normal venous vascularity. The left ovary is visualized. The left ovary measures 3.2 x 3.3 x 2 cm cm. There is a cyst measuring 1.7 x 1.6 x 1.1 cm. There is no visualized left adnexal mass or complex lesion. There is normal arterial and normal venous vascularity. There is mild fluid in the cul-de-sac. The pre void volume of the bladder was 635 ml. US/Pelvic w/ Transvaginal IMPRESSION: Diffusely thickened endometrial lining which appears heterogeneous with intraluminal fluid of uncertain significance. If patient is postmenopausal possibility of endometrial neoplasia or hyperplasia should be considered.. Bilateral ovarian cysts and mild fluid in the cul-de-sac. History 5 Elective abortions Hx Para 4 Spontaneous abortions 1 Hx # Term Pregnancies Ectopic pregnancies Hx # Pregnancies Multiple births # of living children 4 Past Pregnancies Del. Date Name GA/Weeks Outcome Route Bth Weight Infant Gen Labor Lgth Anesthesia Del Locatn Provider FOB Unknown Mesfin Unknown Cindy Female Unknown Javier Unknown Yahaira ROS Const ROS Unobtainable: All systems reviewed & are unremarkable except as noted in H Resp Resp: Reports system reviewed and no additional complaints, except as documented; Denies cough GI GI: Reports as per HPI Psych Psych: Reports system reviewed and no additional complaints, except as documented Exam Const General: cooperative, healthy appearing, comfortable and no acute distress Resp Effort & Inspection: normal respiratory effort Skin General: no rashes or lesions noted Psych Appearance: grossly normal Speech and Movement: speech and movement normal Coding Level of Care Code Off vis,est,level 4 Diagnoses Micrometastasis of breast with at least one neoplasm greater than 0.2 mm and less than 2.0 mm determined by histopathologic examination (pN1 mi) C79.9; C50.919 ASCUS favor dysplasia Malignant neoplasm of upper-outer quadrant of left breast in female, estrogen receptor positive C50.412; Z17.0 Breast location: upper outer quadrant of breast Estrogen receptor status: positive Patient sex: female Laterality: left Assessment and Plan Assessment and Plan (1) Micrometastasis of breast with at least one neoplasm greater than 0.2 mm and less than 2.0 mm determined by histopathologic examination (pN1 mi): Status: Acute (2) ASCUS favor dysplasia: Status: Acute (3) Breast cancer: Status: Chronic Qualifiers: Breast location: upper outer quadrant of breast Estrogen receptor status: positive Patient sex: female Laterality: left Qualified Code(s): C50.412 - Malignant neoplasm of upper-outer quadrant of left female breast; Z17.0 - Estrogen receptor positive status [ER+] Comment: Left upper outer quadrant invasive ductal cancer, clinically Tumor size 11mm, clinically no nodes, ER positive 85%, HI positive 85%,Her2 1-2+, FISH negative, Ki67 15%. BRCA 1&2 are negative. She has no other Germline mutations. S/P Mastectomy and L axillary sentinel node biopsy. Pathology shows Invasive ductal cancer, UOQ, Tumor size 1.8cm, grade 2, margins negative, Lymph nodes 1 negative, 1 with micrometastasis. Pathologic stage pT1c pN1mi. Prognostic Stage IA. Oncotype DX recurrence score 21, 2.7% benefit from chemotherapy. 10yr survival 97% with chemotherapy and hormonal therapy. Discussed further management with adjuvant chemotherapy, adjuvant Hormonal therapy vs sequential therapy with chemotherapy followed by hormonal therapy, . Pt wants to do Hormonal therapy Pelvic ultrasound: FINDINGS: The uterus is anteverted and is in a midline position. The uterus measures 8.6 x 5.8 x 4.2 cm. Normal uterine cervix. The endometrium measures 20.6 mm in thickness, and is heterogeneous. There is no demonstrated endometrial mass. There is intraluminal fluid likely hemorrhage. There is no demonstrated myometrial mass. I.U.D. - The patient does not have an I.U.D. The right ovary is visualized. The right ovary measures 5.4 x 5.1 x 4.6 cm. There is a cyst measuring 4.3 x 4.1 x 3.8 cm. There is no visualized right adnexal mass or complex lesion. There is normal arterial and normal venous vascularity. The left ovary is visualized. The left ovary measures 3.2 x 3.3 x 2 cm cm. There is a cyst measuring 1.7 x 1.6 x 1.1 cm. There is no visualized left adnexal mass or complex lesion. There is normal arterial and normal venous vascularity. There is mild fluid in the cul-de-sac. The pre void volume of the bladder was 635 ml. US/Pelvic w/ Transvaginal IMPRESSION: Diffusely thickened endometrial lining which appears heterogeneous with intraluminal fluid of uncertain significance. If patient is postmenopausal possibility of endometrial neoplasia or hyperplasia should be considered.. Bilateral ovarian cysts and mild fluid in the cul-de-sac. Plan After discussing the patient's diagnosis and treatment plan options, patient wishes to proceed with surgical management. I have discussed with the patient the risks, benefits, and alternatives of the procedure which include but are not limited to risks of anesthesia, bleeding, infection, possible damage to bowel, bladder, or surrounding vasculature which could lead to additional surgery to evaluate any complications. Patient agrees to procedure and wishes to proceed. ACOG/uptodate references given for additional information regarding procedure. plan robotic hyst bso and cysto.
[2024-05-06 07:01] LABS: Bedside Glucose 125 mg/dL (74-106)
--- NOTE | 2024-05-06 07:13 | DCINST_ITS ---
Discharge Instructions Diet Discharge Diet: No restrictions DC O2, CPAP, BIPAP needs Home O2 Discharge instructions: No Dressing / Incision May resume sexual activity in: 8 weeks Weight Bearing Status: Full weight bearing Dressing / Incision Call your doctor if your incision/area has: Continuous Slow Oozing, Sudden Increased Bleeding, Increased Pain/ Swelling, Increased Redness and Foul Smelling Discharge Call your doctor if you observe: Fever of 101 or Higher, Using more than 1 pad per hour, Shortness of breath, Chest pain and Uncontrolled pain Suture Line Care: Avoid Pulling/Pushing and Avoid Pinching/Bending Remove Dressing in: 1 week (if present) Cleanse incision/area with: Soap & Water and Keep Dressing Clean & Dry Follow Up Care Please Follow Up With: Adriana Catherine DO When: Call to make an appointment with your doctor for a postop visit in 2 and 6 weeks Test Results: Test results from this visit will be discussed in further detail at your follow- up appointment, if applicable. Discharge Plan Admission Primary Reason for Your Visit: hysterectomy Attending Provider: Adriana Catherine Primary Care Provider: Princess Valdivia Instructions Print Language: Palestinian Discharge Orders/Prescriptions Prescriptions: New ibuprofen 800 mg tablet 800 mg PO Q8H PRN (Reason: pain) Qty: 30 0RF oxycodone-acetaminophen [Percocet] 5-325 mg tablet 1 tab PO Q4H PRN (Reason: pain) 7 Days Qty: 20 0RF Rx Instructions: 1-2 tabs q 4 hrs as needed for pain promethazine 12.5 mg tablet 12.5 mg PO Q6H PRN (Reason: nausea) Qty: 30 0RF No Action NK Referrals / Follow Up: Princess Valdivia PA [Primary Care Provider] - Disposition Disposition (needs filled in before D/C Order can be placed): Home, Self Care
--- NOTE | 2024-05-06 07:24 | PCM.PRE.AN2 ---
ASA Classification* ASA Classification ASA Classification: 2 Assessment & Plan Anesthesia* Anesthesia Assessment Anesthesia Assessment: Discussed sedation and/or anesthesia options, risks, benefits, and alternatives with patient/parents/legal guardian/POA. Questions invited. The patient/parents/legal guardian/POA seems to understand and agrees to proceed with anesthesia plan. Reviewed the physical assessment, medical history, allergy history and patient home medications list prior to surgery/procedure/anesthetic and documented any changes. Performed airway and anesthesia risk assessments. Anesthesia Type Anesthesia Type: General History Source History Obtained from:: Patient and Chart Anesthesia Focused Assessment* Temperature: 98 F Pulse Rate: 74 Blood Pressure: 97/64 Respiratory Rate: 14 Pulse Ox: 100 Oxygen Delivery Method: Room Air Airway Assessment Mouth opens: >3 cm Mallampati Score: III Teeth Condition: Intact Neck Range of motion (ROM): Full ROM Focused Labs Anesthesia Preop lab: CBC WBC 6.4 K/mm3 (4.4-11.0) 04/28/24 12:19 RBC 3.91 M/mm3 (4.2-5.4) L 04/28/24 12:19 Hgb 12.6 g/dL (12.0-15.0) 04/28/24 12:19 Hct 36.8 % (37-47) L 04/28/24 12:19 Plt Count 211 K/mm3 (150-450) 04/28/24 12:19 CHEMISTRY Magnesium 2.4 mg/dL (1.6-2.6) 04/28/24 12:17 POC Glucose 125 mg/dL (74-106) H 05/06/24 06:16 COAG Urine Test Negative Negative 05/06/24 05:30 Tst Clinic Negative 03/05/24 11:03 Pre-Assessment Diagnosis/Proposed Procedure Planned Operative Procedure(s): TOTAL ROBOTIC HYSTERECTOMY BSO CYSTO Anesthesia History Anesthesia History - rug scratcher: Anesthesia History - rug scratcher Hx Hospitalization No 04/24/24 10:25 Any Problems With Anesthesia Yes: N,V WITH MASTECTOMY 04/24/24 10:25 24 Cholinesterase deficiency No 04/24/24 10:25 You/Your Family Experience No 04/24/24 10:25 fever (hyperthermia) with Relationship Recent Exposure to Contagious No 05/06/24 06:10 Disease Does patient have nerve No 04/24/24 10:25 stimulator Patient instructed to have device shut off --Does patient have Pacemaker No 05/06/24 06:10 or ICD? When Was Last Pacemaker Check QUESTION #4 FULL TEXT: You/Your Family Experience fever (hyperthermia) with Anesthesia Last Oral Intake Last Oral intake: Last Oral Intake NPO since 04:30 05/06/24 06:10 Meds taken in AM with sips of No 05/06/24 06:10 water? Meds patient instructed to take am of surgery Any additional information?: Yes NPO since: 04: (Patient had her presurgical Ensure at 4:30 AM.) Meds taken in AM with sips of water?: Yes PONV PONV - rug scratcher: PONV - rug scratcher Female Yes 04/24/24 10:25 HX of Motion Sickness No 04/24/24 10:25 HX of N/V After Surgery No 04/24/24 10:25 Non-Smoker Yes 04/24/24 10:25 Duration of Surgery greater Yes 04/24/24 10:25 than 60 minutes Number of Risk Factors 3 04/24/24 10:25 PONV Score Moderate Risk 04/24/24 10:25 Height & Weight Height & Weight: Anesthesia: Height & Weight Height 5 ft 6 in 05/06/24 06:10 Weight: 55 kg 05/06/24 06:10 Body Mass Index (BMI) 19.5 05/06/24 06:10 Respiratory Assessment Respiratory Assessment - rug scratcher: Respiratory Tract Infection Hx - rug scratcher Hx Respiratory Tract Infection No 04/24/24 10:25 STOP Sleep Apnea STOP Sleep Apnea - rug scratcher: STOP Sleep Apnea - rug scratcher Hx Hypertension No 04/24/24 10:25 Hx Sleep Apnea No 04/24/24 10:25 CPAP No 04/24/24 10:25 BIPAP Do you snore loudly (louder No 04/24/24 10:25 than talking or can be heard Do you often feel tired/ No 04/24/24 10:25 fatigued/ sleepy during daytime? Has anyone observed you stop No 04/24/24 10:25 breathing during sleep? STOP Results Negative 04/24/24 10:25 QUESTION #5 FULL TEXT : Do you snore loudly (louder than talking or can be heard through closed doors)? 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 Specify any problems Hx of Preganancy in last 3 No 04/24/24 10:25 Months Nurse Filling Out Transfusion DSCHRIBER 04/24/24 10:25 & Questions: Date: 04/24/24 04/24/24 10:25 Time: 10:26 04/24/24 10:25 Patient unable to answer at this time (ie. confused, unrespo /Reproduction History /Reproductive History - rug scratcher: /Reproductive Hx- rug scratcher Hx Now No 04/24/24 10:25 Gestational Age (in weeks): EDC: Hx Hx Para Hx Section SAB No 04/28/24 14:30 Active Medications Active Medications: Current Medications Generic Name Dose Route Start Last Admin Trade Name Freq PRN Reason Stop Dose Admin Acetaminophen 1,000 mg 05/06/24 07:30 05/06/24 06:23 Acetaminophen 500 Mg Tablet PO 05/06/24 07:31 1,000 mg PREOP ONE Administration Celecoxib 400 mg 05/06/24 07:30 05/06/24 06:23 Celecoxib 200 Mg Capsule PO 05/06/24 07:31 400 mg X1 ONE Administration Gabapentin 600 mg 05/06/24 07:30 05/06/24 06:23 Gabapentin 600 Mg Tablet PO 05/06/24 07:31 600 mg PREOP ONE Administration Lactated Ringer's 1,000 mls @ 40 mls/hr 05/06/24 07:30 05/06/24 06:24 IV 40 mls/hr .Q25H FANG Administration Cefazolin Sodium 2 gm/ N/A 20 mls @ 400 mls/hr 05/06/24 07:30 IV 05/06/24 07:32 PREOP ONE Lactated Ringer's 1,000 mls @ 40 mls/hr 05/06/24 07:30 IV .Q25H FANG Magnesium Sulfate 1 gm/ 102 mls @ 408 mls/hr 05/06/24 07:30 05/06/24 06:24 Dextrose IV 05/06/24 07:44 408 mls/hr X1 ONE Administration Insulin Human Lispro 0 unit 05/06/24 07:30 Insulin Lispro 100 Unit/Ml Insuln.Pen SC 05/06/24 18:00 Q4H PRN PRN BG >/= 180, SEE PROTOCOL Protocol Ondansetron HCl 4 mg 05/06/24 07:30 Ondansetron 4 Mg/2 Ml Vial IV 05/06/24 07:31 X1 ONE Phenazopyridine HCl 190 mg 05/06/24 07:30 05/06/24 06:23 Phenazopyridine 95 Mg Tablet PO 05/06/24 07:31 190 mg X1 ONE Administration PFSH Medical History Breast cancer, left Osteoporosis Wears contact lenses Wears glasses Cancer Anemia Non-smoker History of echocardiogram History of anemia Breast cancer Home Medications ?Medication ?Instructions ?Recorded ?Last Taken ?Type NK 04/28/24 Unknown History ibuprofen 800 mg tablet 800 mg PO Q8H PRN pain #30 tabs 05/06/24 Unknown Rx oxycodone-acetaminophen 5 mg-325 1 tab PO Q4H PRN pain 7 days #20 05/06/24 Unknown Rx mg tablet (Percocet) tabs promethazine 12.5 mg tablet 12.5 mg PO Q6H PRN nausea #30 tabs 05/06/24 Unknown Rx Allergy/AdvReac Type Severity Reaction Status Date / Time adhesive tape Allergy Mild Rash Verified 05/06/24 06:09 Family History Mother Breast cancer mastectomy 2016 Diabetes Hypertension CAD (coronary artery disease) Father Cancer Diabetes Hypertension Aunt Breast cancer Surgical History S/P mastectomy, bilateral History of breast biopsy (~12/2023) S/P tonsillectomy S/P section Social History adopted: No household members: spouse and children housing: house number of children: 4 current occupational status: employed 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 current occupational exposures/hazards: No pets and animals: Yes (2 dogs) leisure activities: sports, music, games and reading history of recent travel: Yes (Family vacation in [facility]) sexually active: No Smoking Status: Never smoker second hand exposure: No alcohol intake: never substance use type: does not use well-balanced diet: daily or most days caffeine: Yes (1 to 2 cups of black coffee a day) Type: coffee eating out: 1-3 times/week during the past year weight has: remained stable what type of physical activity do you participate in: walking, bicycling, swimming and yoga frequency: 1-2 times per week duration: 30-45 minutes/day tanner/sikhism: Restorationist seatbelt use: always do you feel safe at home: Yes additional social history: - Abhishek Review of Systems (Anesthesia) ROS Narrative System reviewed and no additional complaints, except as documented.
--- NOTE | 2024-05-06 07:30 | HYST_PTH ---
PATIENT: ALESSANDRO PALACIOS LOC: [facility] [place] U#:[id number] AGE/SX: 44/F ROOM: RE05/06/[address]: Dr. Adriana Catherine DO : 1980 BED: DIS: 05/06/2024 SPEC #: [id number] RECD: 05/06/24 10:42 STATUS: STEPHANIE ALMARAZ #: [id number] COLE: 05/06/24 07:[address]: Adriana Catherine DEPT: SURGICAL PATHOLOGY RECD BY: Karis Mcmanus ENTERED: 05/06/24 11:46 SP TYPE: HYSTERECT OTHR DR: ERIN Pineda Tissues: Uterus, NOS Procedures: Surgery Specimen Level V HEADER OPERATION: Laparoscopic robotic hysterectomy, cystoscopy PRE-OP DIAGNOSIS: ASCUS favor dysplasia and history of breast cancer TISSUE SUBMITTED: Uterus, bilateral fallopian tubes and ovaries MICROSCOPIC DIAGNOSIS Uterus, bilateral fallopian tubes and ovaries, hysterectomy, bilateral salpingo-oophrecectomy: Cervix - Chronic cystic cervicitis. - Negative for dysplasia. Endometrium - Secretory endometrium. Myometrium - Focal superficial adenomyosis. Bilateral fallopian tubes- no pathologic diagnosis. Right ovary - Physiologic follicular cyst. Left ovary - Physiologic follicular and corpus luteal cysts. Focal right tuboovarian adhesions. . 05/07/2024 COMMENT The entire cervix is examined like a cone. MICROSCOPIC DESCRIPTION Slides are reviewed. GROSS DESCRIPTION Received in fixative is one container labeled with the patient's name and designated uterus, cervix, bilateral fallopian tubes and ovaries. The specimen consists of a hysterectomy specimen consisting of uterus with cervix and attached bilateral fallopian tubes and ovaries. The uterus with cervix weighs 86 gm and measures 9.5 x 6.0 x 4.0 cm. The serosal surface is focally ragged. The ectocervical mucosa is unremarkable. The external os is oval in contour. Resection margin of cervix is inked as follow: anterior cervix - black, posterior cervix - blue. The endocervical canal measures 3.0 cm in length and the endocervical mucosa is unremarkable. Sections of cervix reveal multiple cysts filled with mucoid material. The triangular endometrial cavity measures 4.5 cm in length and 3.0 cm in width. The endometrium is pink, congested without any mass lesions and measures up to 0.3 cm in thickness. Sections of the uterine wall do not reveal any mass lesions and measures 2.0 in thickness. Right fallopian tube measures 5.0cm in length and up to 0.5cm in diameter. Fimbrial end is identified. Focal tuboovarian adhesions are noted. A filshie clip is also noted on the proximal margin of the fallopian tube which appears to be intact. The right ovary measures 3.5 x 2.0 x 1.5cm. Sections reveal unremarkable cut surfaces. Left fallopian tube measures 6.5cm in length and 0.5cm in diameter. Fimrbial end is identified. No tuboovarian adhesions are noted. Filshie clip is not seen in this fallopian tube. Soft to cystic left ovary measures 4.0 x 2.5 x 1.5cm. Sections reveal a hemorrhagic cyst measuring 2.5cm in greatest dimension. Box Office Clerk sections are submitted in seventeen cassettes as follows: 1-8 - cervical like a cone ( 1&2- 12-3o'clock, 3&4- 3-6o'clock, 5&6- 6-9o'clock, 7&8- 9-12o'clock), 9&10- anterior uterine wall, 11&12- posterior uterine wall, 13- right fallopian tube and ovary, 14- more sections of right ovary with portion of adherent fallopian tube, 15- left fallopian tube, 16&17- left ovary. SJ: 05/06/2024 TC:5 CPT: 33763
--- NOTE | 2024-05-06 08:04 | OP.PCM_ITS ---
Problems Associated Problem List Diagnoses (1) Micrometastasis of breast with at least one neoplasm greater than 0.2 mm and less than 2.0 mm determined by histopathologic examination (pN1 mi): (2) Menorrhagia: (3) ASCUS favor dysplasia: (4) Atypical ductal hyperplasia of left breast: Multi Select Codes Urinary/Genital Urinary/Genital CPT Codes: 35804 Cystoscopy and 76032 TLH+BS/O <250gr uterus Operative Report (Standard) Operative Information Date of Procedure: 05/06/24 Pre-Operative Diagnosis: breast cancer, menorrhagia Post-Operative Diagnosis: breast cancer, menorrhagia Surgery/Procedure Performed: total robotic hysterectomy, bilateral salpingectomy, cystoscopy operations dispatcher: Yes Meat Grading Machine Operator: Jules Salinas Tasks completed by grooming assistant: Closing, Insert Trochanter and Retracting Additional secretary administrative assistant?: No Type of Anesthesia: General RN Documented Start/Stop Times: Operation Date: 05/06/24 07:30 Case Time Into Pre-Op 05/06/24 05:46 Out of Pre-Op 05/06/24 07:53 Anesthesia Start 05/06/24 07:57 Into Room 05/06/24 07:57 Procedure Start 05/06/24 08:19 Procedure Start Time: 08:19 Procedure Stop Time: 09:48 Select all DRAINS/GRAFTS/IMPLANTS that apply: None Estimated Blood Loss: 50cc Specimen collected: Yes Description of specimen(s) removed: uterus, cervix, bilateral fallopian tubes and ovaries Description of surgery: Findings: 8 cm size uterus, normal appearing ovaries and tubes. On exploration of the abdominal cavity the uterus, adnexa, bowel, and liver were found to be normal. Cystoscopy showed no evidence of leaking at approximately 250 cc of normal saline, positive ureteral orifices and jet flow are seen and no suture material was appreciated in the bladder. Specimens removed: Uterus and cervix, Bilateral tubes and ovaries Reason for surgery: This is a 44-year-old G4, P4 who presented to my office with history of breast cancer, requesting BSO and hysterectomy. the planned procedure is for a robotic hysterectomy due to 4 sections. the risks b enefits and alternatives were discussed with the patient the patient had a clear understanding of the procedure and a consent form was signed. Procedure: The patient was placed in the dorsal low lithotomy position and prepped and draped in the normal sterile fashion both abdominally and in the perineum. Her legs were placed in stirrups a Kinney catheter was inserted into the urethra without difficulty. A weighted speculum was placed in the vagina and a single- tooth tenaculum was used to grasp the anterior lip of the cervix. An advincula uterine manipulator was inserted through the cervix without complication. It was then tied into place at the 2 and 10:00 locations on the cervix. Gloves were changed and attention was turned towards the abdomen. Approximately 23 cm above the pubic symphysis in the midline, and after Marcaine injection, a 8 mm incision was made. An 8 mm trocar was inserted through the laparoscope, then inserted into the abdomen under direct visualization using the laparoscope. Good abdominal placement was noted and no complications were appreciated. An air seal device was utilized to create pneumoperitoneum. At 12 cm lateral to the midline on the left and right sides 8 mm accessory ports were placed. Next a left upper quadrant 8 mm secretary administrative assistant port site was placed. The patient was placed in steep Trendelenburg position. The robot was docked. The hysterectomy was initiated first by taking down the round ligament on each side using the vessel sealer device. A right fallopian tube filshie clip was noted. The tube was also adherent to the side wall. This was freed with manual disection. The peritoneum between the round ligament and the IP ligament was opened using electrocautery and extended the length of the IP ligament. The IP ligament was then taken down using the vessel sealer device. These areas were freed without complication the broad ligament was then and taken down using the vessel sealer device. Next the bladder flap was taken down without complication. This was done using monopolar cautery to the level of the cervical vaginal junction. After the bladder flap was created, uterine vessels were then isolated and cauterized using the vessel sealer device and EndoShears. At this point the uterine vessels were taken down further starting from the ascending branch, dissecting along the edges of the cervix to the level of the cervical vaginal junction with hemostasis appreciated. The cervical vaginal junction was then using monopolar cautery in a circumferential pattern across the superior aspect of the cervix. The specimen was delivered through the vagina and sent to pathology. The remaining vaginal cuff was then closed using a V lock suture. This was performed in a running technique. Excellent hemostasis was obtained and good closure was noted. Irrigation was then performed. All operative sites were noted to be hemostatic. A cystoscopy was performed with a 70 degree cystoscope through the urethra into the bladder without complication. The bladder was instilled with approximately 250 cc of normal saline. Intraoperative images were made. Ureteral orifices and jets were identified. No suture material was appreciated in the bladder. The bladder was then drained and cystoscope was removed. The abdominal cavity was again examined using the laparoscope after the robot was undocked. All operative sites were noted to be hemostatic. The trochars were removed under direct visualization without complication and pneumoperitoneum was reduced. At this point the skin was then closed using 4-0 Monocryl subcuticular stitch and sealed with surgical glue. The patient tolerated the procedure well sponge lap and needle counts were correct x2 the patient was taken to the recovery room in stable condition. Surgical Findings: normal uterus and ovaries, fallopian tubes scared with filshie clip placement on the left, right fallopian tube adherent to lower uterine segment and normal appearing. Complications Complications: No Admit VTE Documentation VTE Present on Admission: No VTE Mechan Device Prophylaxis: SCD's VTE Pharm Prophylaxis ordered?: No
[2024-05-06] MEDS: Cefazolin 2 GM in Syringe 10 ML IV (08:11)
[2024-05-06] MEDS: Bupivacaine 0.25% 30 ML Vial (09:25)
--- NOTE | 2024-05-06 10:05 | PCM.POST.ANE ---
Anesthesia: Postop Eval I Current Vital Signs Temperature: 96.6 F Pulse Rate: 94 Blood Pressure: 111/73 Respiratory Rate: 20 Pulse Ox: 100 Oxygen Delivery Method: Room Air Assessment Airway patent: Yes Spontaneous unlabored respirations: Yes Mental status: Awake nausea: No Vomiting: No Anesthesia Complication: No Fluid Hydration Crystalloid volume administer (ml): 1,700 Total IV fluid infused: 1,700 Progress Note Anesthesia document: Postop Eval 1 completed: Yes
--- NOTE | 2024-05-06 10:12 | PCM.PRE.AN2 ---
ASA Classification* ASA Classification ASA Classification: 2 Assessment & Plan Anesthesia* Anesthesia Assessment Anesthesia Assessment: Discussed sedation and/or anesthesia options, risks, benefits, and alternatives with patient/parents/legal guardian/POA. Questions invited. The patient/parents/legal guardian/POA seems to understand and agrees to proceed with anesthesia plan. Reviewed the physical assessment, medical history, allergy history and patient home medications list prior to surgery/procedure/anesthetic and documented any changes. Performed airway and anesthesia risk assessments. Anesthesia Type Anesthesia Type: General Anesthesia Focused Assessment* Temperature: 96.6 F Pulse Rate: 94 Blood Pressure: 108/82 Respiratory Rate: 16 Pulse Ox: 100 Oxygen Flow Rate (L/min): 4 Airway Assessment Mouth opens: 2 cm Mallampati Score: I Focused Labs Anesthesia Preop lab: CBC WBC 6.4 K/mm3 (4.4-11.0) 04/28/24 12:19 04/28/24 RBC 3.91 M/mm3 (4.2-5.4) L 04/28/24 12:19 04/28/24 Hgb 12.6 g/dL (12.0-15.0) 04/28/24 12:19 04/28/24 Hct 36.8 % (37-47) L 04/28/24 12:19 04/28/24 Plt Count 211 K/mm3 (150-450) 04/28/24 12:19 04/28/24 CHEMISTRY Magnesium 2.4 mg/dL (1.6-2.6) 04/28/24 12:17 04/28/24 POC Glucose 125 mg/dL (74-106) H 05/06/24 06:16 05/06/24 COAG Urine Test Negative Negative 05/06/24 05:30 05/06/24 Tst Clinic Negative 03/05/24 11:03 03/05/24 Pre-Assessment Diagnosis/Proposed Procedure Planned Operative Procedure(s): TOTAL ROBOTIC HYSTERECTOMY BSO CYSTO Anesthesia History Anesthesia History - writing manager: Anesthesia History - writing manager Hx Hospitalization No 04/24/24 10:25 Any Problems With Anesthesia Yes: N,V WITH MASTECTOMY 04/24/24 10:25 24 Cholinesterase deficiency No 01/02/25 10:25 You/Your Family Experience No 04/24/24 10:25 fever (hyperthermia) with Relationship Recent Exposure to Contagious No 05/06/24 06:10 Disease Does patient have nerve No 04/24/24 10:25 stimulator Patient instructed to have device shut off --Does patient have Pacemaker No 05/06/24 06:10 or ICD? When Was Last Pacemaker Check QUESTION #4 FULL TEXT: You/Your Family Experience fever (hyperthermia) with Anesthesia Last Oral Intake Last Oral intake: Last Oral Intake NPO since 04:30 05/06/24 07:28 Meds taken in AM with sips of Yes 05/06/24 07:28 water? Meds patient instructed to take am of surgery PONV PONV - writing manager: PONV - writing manager Female Yes 04/24/24 10:25 HX of Motion Sickness No 04/24/24 10:25 HX of N/V After Surgery No 04/24/24 10:25 Non-Smoker Yes 04/24/24 10:25 Duration of Surgery greater Yes 04/24/24 10:25 than 60 minutes Number of Risk Factors 3 04/24/24 10:25 PONV Score Moderate Risk 04/24/24 10:25 Height & Weight Height & Weight: Anesthesia: Height & Weight Height 5 ft 6 in 05/06/24 06:10 Weight: 55 kg 05/06/24 06:10 Body Mass Index (BMI) 19.5 05/06/24 06:10 Respiratory Assessment Respiratory Assessment - writing manager: Respiratory Tract Infection Hx - writing manager Hx Respiratory Tract Infection No 04/24/24 10:25 STOP Sleep Apnea STOP Sleep Apnea - writing manager: STOP Sleep Apnea - writing manager Hx Hypertension No 04/24/24 10:25 Hx Sleep Apnea No 04/24/24 10:25 CPAP No 05/06/24 10:03 BIPAP Do you snore loudly (louder No 04/24/24 10:25 than talking or can be heard Do you often feel tired/ No 04/24/24 10:25 fatigued/ sleepy during daytime? Has anyone observed you stop No 04/24/24 10:25 breathing during sleep? STOP Results Negative 05/06/24 10:03 QUESTION #5 FULL TEXT : Do you snore loudly (louder than talking or can be heard through closed doors)? Tobacco Use History Tobacco Use History - writing manager: Tobacco Use History - writing manager Tobacco Use Smoking Status Never smoker 04/24/24 10:25 Hx Tobacco Use No 04/24/24 10:25 Years Smoking Packs Smoked per Day Smoking Cessation Date was within the last 15 years Hx Smoking Cessation Date Hx Smoking Cessation Counseling Hematologic Medial History Hematologic Hx - writing manager: Hematologic Medical Hx - show card writer Hx of Blood Transfusion No 04/24/24 10:25 Hx of Transfusion in last 3 No 04/24/24 10:25 Months Date of Last Transfusion (if within last 3 months) Ever experience any problems No 04/24/24 10:25 with transfusion(s)? Specify any problems Hx of Preganancy in last 3 No 04/24/24 10:25 Months Nurse Filling Out Transfusion DSCHRIBER 04/24/24 10:25 & Questions: Date: 04/24/24 04/24/24 10:25 Time: 10:26 04/24/24 10:25 Patient unable to answer at this time (ie. confused, unrespo /Reproduction History /Reproductive History - writing manager: /Reproductive Hx- writing manager Hx Now No 04/24/24 10:25 Gestational Age (in weeks): EDC: Hx Hx Para Hx Section SAB No 04/28/24 14:30 Active Medications Active Medications: Current Medications Generic Name Dose Route Start Last Admin Trade Name Freq PRN Reason Stop Dose Admin Hydrocodone Bitart/Acetaminophen 1 - 2 tablet 05/06/24 08:02 Hydrocodone Bitartrate/Apap 5/325 Tablet PO Q6H PRN PRN Pain Score 6-10 Lactated Ringer's 1,000 mls @ 40 mls/hr 05/06/24 07:30 05/06/24 06:24 IV 40 mls/hr .Q25H FANG Administration Lactated Ringer's 1,000 mls @ 40 mls/hr 05/06/24 07:30 IV .Q25H FANG Insulin Human Lispro 0 unit 05/06/24 07:30 Insulin Lispro 100 Unit/Ml Insuln.Pen SC 05/06/24 18:00 Q4H PRN PRN BG >/= 180, SEE PROTOCOL Protocol Morphine Sulfate 2 mg 05/06/24 08:02 Morphine 2 Mg/Ml Syringe IV Q2H PRN PRN Pain Score 6-10 Ondansetron HCl 4 mg 05/06/24 08:02 Ondansetron 4 Mg/2 Ml Vial IM X1 PRN NAUSEA PFSH Medical History Osteoporosis Wears contact lenses Wears glasses Cancer Anemia Non-smoker History of echocardiogram History of anemia Breast cancer Home Medications ?Medication ?Instructions ?Recorded ?Last Taken ?Type NK 04/28/24 Unknown History Allergy/AdvReac Type Severity Reaction Status Date / Time adhesive tape Allergy Mild Rash Verified 05/21/24 09:33 Family History Mother Breast cancer mastectomy 2016 Diabetes Hypertension CAD (coronary artery disease) Father Cancer Diabetes Hypertension Aunt Breast cancer Surgical History History of breast biopsy (~12/2023) S/P tonsillectomy S/P section Social History adopted: No household members: spouse and children housing: house number of children: 4 current occupational status: employed current occupation: [employer] current occupational exposures/hazards: No pets and animals: Yes (2 dogs) leisure activities: sports, music, games and reading history of recent travel: Yes (Family vacation in [facility]) sexually active: No Smoking Status: Never smoker second hand exposure: No alcohol intake: never substance use type: does not use well-balanced diet: daily or most days caffeine: Yes (1 to 2 cups of black coffee a day) Type: coffee eating out: 1-3 times/week during the past year weight has: remained stable what type of physical activity do you participate in: walking, bicycling, swimming and yoga frequency: 1-2 times per week duration: 30-45 minutes/day tanner/taoist: Orthodoxy seatbelt use: always do you feel safe at home: Yes additional social history: Rachel- Abhishek Review of Systems (Anesthesia) ROS Narrative System reviewed and no additional complaints, except as documented.
[2024-05-06] MEDS: Lactated Ringers @ 40 MLS/HR 40 ML IV (10:45)
[2024-05-06] MEDS: oxyCODONE 5 MG Tablet PO (11:45)
--- NOTE | 2024-05-07 03:34 | POSTOPAN2_ITS ---
Anesthesia Postop Eval I Sum Postop Eval Completion status Anesthesia document: Postop Eval 1 completed: Yes Anesthesia Postop Eval I Summary Anesthesia Postop Eval I Summary: Anesthesia Postop Eval I: Assessment Summary Airway patent Yes 05/06/24 10:07 TOP [email or web address] Spontaneous unlabored Yes 05/06/24 10:07 TOP [email or web address] respirations Mental status Awake 05/06/24 10:07 TOP [email or web address] nausea No 05/06/24 10:07 TOP [email or web address] Vomiting No 05/06/24 10:07 TOP [email or web address] Anesthesia Postop Eval I: Fluid Summary Crystalloid volume administer 1,700 05/06/24 10:07 TOP [email or web address] (ml) Colloids volume administered ( ml) Blood Product volume administered (ml) Total IV fluid infused 1,700 05/06/24 10:07 TOP [email or web address] Anesthesia Postop Eval I: Summary Notes Anesthesia Complication No 05/06/24 10:07 TOP [email or web address] Anesthesia Complication Comment: Post-operative progress note Anesthesia: Postop Eval II Evaluation Mental status: Awake and Calm Pain Level: 1 nausea: No Vomiting: No Complications Anesthesia Complication: No
--- NOTE | 2024-05-07 03:34 | PCM.POSTANE2 ---
Anesthesia Postop Eval I Sum Postop Eval Completion status Anesthesia document: Postop Eval 1 completed: Yes Anesthesia Postop Eval I Summary Anesthesia Postop Eval I Summary: Anesthesia Postop Eval I: Assessment Summary Airway patent Yes 05/06/24 10:07 PICKING [email or web address] Spontaneous unlabored Yes 05/06/24 10:07 PICKING [email or web address] respirations Mental status Awake 05/06/24 10:07 PICKING [email or web address] nausea No 05/06/24 10:07 PICKING [email or web address] Vomiting No 05/06/24 10:07 PICKING [email or web address] Anesthesia Postop Eval I: Fluid Summary Crystalloid volume administer 1,700 05/06/24 10:07 PICKING [email or web address] (ml) Colloids volume administered ( ml) Blood Product volume administered (ml) Total IV fluid infused 1,700 05/06/24 10:07 PICKING [email or web address] Anesthesia Postop Eval I: Summary Notes Anesthesia Complication No 05/06/24 10:07 PICKING [email or web address] Anesthesia Complication Comment: Post-operative progress note Anesthesia: Postop Eval II Evaluation Mental status: Awake and Calm Pain Level: 1 nausea: No Vomiting: No Complications Anesthesia Complication: No
== END 2024-05-06 16:02 | disposition home or self-care (01) ==
LOC: SDC 05:19 → AC 05:19
PROVIDERS: Anesthesiology; PCP Physician Assistant; Referring Provider Obstetrics & Gynecology; Visit Provider Obstetrics & Gynecology
PROC: 0UT94ZZ Resection of Uterus, Percutaneous Endoscopic Approach (ICD-10-PCS; CPT 58571; principal; 2024-05-06 07:10)
DX: N72 Inflammatory disease of cervix uteri (principal); C50.412 Malignant neoplasm of upper-outer quadrant of left female breast; N80.03 Adenomyosis of the uterus; N92.0 Excessive and frequent menstruation with regular cycle; N60.92 Unspecified benign mammary dysplasia of left breast; N83.01 Follicular cyst of right ovary; N83.02 Follicular cyst of left ovary; N83.12 Corpus luteum cyst of left ovary; Z80.3 Family history of malignant neoplasm of breast
CPT/HCPCS: 58571; S2900; 00840; 36415; 81025; 82962; 83735; 85027; 86850; 86900; 86901; 88307; 93005; J2405